=== PATIENT | female | born 1940 | race African-American/Black ===

== ENCOUNTER 2016-03-04 11:09 | Emergency (ER) | payer OTHER ==
[~2016-03-04] VITALS: Ht 149.9 cm; Wt 45.4 kg
--- NOTE | ~2016-03-04 | EKG ---
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
[~2016-03-04 11:09] MED LIST: NAUZENE PO; NOHOMEMEDICATIONS; OMEPRAZOLE; PERCOCET 5-3251 EACH PO; PHENERGAN 25 MG25 MG PO
[2016-03-04] MEDS ORDERED: VITAMIN D1000 UNI1 PO (11:16)
[2016-03-04] MEDS ORDERED: RISPERIDONE 1 MG1 MG PO (11:16)
[2016-03-04] MEDS ORDERED: CALCIUM 500 +1 EAC1 PO (11:16)
[2016-03-04 12:00] LABS: URINE BILIRUBIN NEGATIVE (Negative); URINE BLOOD NEGATIVE (Negative); URINE COLOR YELLOW; URINE GLUCOSE-RANDOM* NEGATIVE (Negative); URINE KETONES NEGATIVE (Negative); URINE LEUKOCYTES-REFLEX NEGATIVE (Negative); URINE PROTEIN (DIPSTICK) NEGATIVE (Negative); URINE UROBILINOGEN 0.2 E.U./dl (0.2-1.0)
[2016-03-04 12:01] LABS: ABSOLUTE NEUTROPHILS 5.3 thou/uL (1.4-8.2); EOSINOPHILS 2.9 % (0.0-3.0); HEMATOCRIT 43.5 % (37.0-47.0); HEMOGLOBIN 14.4 gm/dL (12.0-15.0); LYMPHOCYTES 28.5 % (24.0-44.0); MCH 30.8 pg (26.0-34.0); MCHC 33.2 % (28.0-37.0); MONOCYTES 4.9 % (1.0-8.0); PLATELET COUNT 301 thou/uL (150-400); POLYS 62.7 % (36.0-66.0); RBC 4.67 mil/uL (4.20-5.00); RDW 14.4 % (10.5-14.5); WBC 8.5 thou/uL (4.0-11.0)
[2016-03-04 12:11] LABS: MANUAL DIFF NO
[2016-03-04 12:28] LABS: ALBUMIN 3.5 g/dL (3.4-5.0); CALCIUM 8.8 mg/dL (8.5-10.1); CREATININE 0.1 mg/dL (0.6-1.3); POTASSIUM 5.6 mmol/L (3.5-5.1); TOTAL BILIRUBIN 0.9 mg/dL (<0.1-1.0); TOTAL PROTEIN 6.5 g/dL (6.4-8.2)
[2016-03-04 12:51] LABS: PLATELET ESTIMATE NORMAL
[2016-03-04] MEDS ORDERED: NORCO 5-325 TA1 EACH PO (14:03)
[2016-03-04 14:16] VITALS: BP 108/67
[2016-03-04] MEDS ORDERED: ZOFRAN ODT4 MG PO (14:16)
== END 2016-03-04 14:35 | disposition home or self-care (01) ==
LOC: ER 11:09
PROVIDERS: Emergency Medicine
DX: R41.0 Disorientation, unspecified (principal); M54.2 Cervicalgia; M25.519 Pain in unspecified shoulder; F17.210 Nicotine dependence, cigarettes, uncomplicated; Z90.710 Acquired absence of both cervix and uterus; Z88.6 Allergy status to analgesic agent; Z88.5 Allergy status to narcotic agent; Z88.1 Allergy status to other antibiotic agents

== ENCOUNTER 2016-07-11 11:49 | Inpatient (IN) | payer OTHER ==
[~2016-07-11] VITALS: Ht 157.5 cm; Wt 57.6 kg
--- NOTE | ~2016-07-11 | HC ---
[facility] [address] [place] [address] CONSULTATION Name: ALEX MARAVILLA Room #: 546-P [facility] IN M.R.#: [id number] Admission: 07/11/16 Attend Phys: Janes Miller MD Discharge: Date of : 41 Report #: [id number] THIS REPORT FOR: //name// CC: FAM unknown Janes Miller HISTORY OF PRESENT ILLNESS: The patient is a pleasant 76-year-old female who was admitted through the Emergency Room yesterday following a fall, where she landed on her right ankle. The patient complains of pain in the right ankle today. She reports that she does not remember exactly how she fell, but just notes that she fell and landed on her right ankle. She denies hitting her head or loss of consciousness with the fall. The patient does have a past medical history of polio with a right foot drop; she normally ambulates with a cane. ALLERGIES: ASPIRIN, CODEINE, CEPHALEXIN MONOHYDRATE and MORPHINE. PAST MEDICAL AND PAST SURGICAL HISTORY: Significant for dementia, child , hysterectomy, blood clot and polio. SOCIAL HISTORY: The patient reports that she lives at home, she is a current fqrd-addw-l-day smoker with a 53-year history. She reports that she does drink alcohol on special occasions. She typically ambulates with a cane or crutch. PHYSICAL EXAMINATION: VITAL SIGNS: Temperature 36.7 degrees Celsius, blood pressure 118/76 and pulse 88. GENERAL: The patient is awake, alert and in no acute distress. She is pleasantly confused today. EXTREMITIES: Right lower extremity is neurovascularly intact. Sugar-tong splint is in place on the right lower extremity. This was removed. No evidence of skin breakdown seen beneath the splint. Tenderness to palpation of the lateral malleolus, ATFL, CFL and distal fibula. No tenderness to palpation of the medial malleolus, mid foot. LABORATORY DATA: White blood cell count is 10.3, hemoglobin 14.6, creatinine is 0.4, BUN is 10, AST 13, ALT 11 and blood glucose is 188. IMAGING: Three views of the right ankle performed on 07/11/2016 show findings most suggestive of a nondisplaced, obliquely oriented fracture involving the distal fibula/lateral malleolus, with lateral soft tissue swelling/thickening. IMPRESSION: Right lateral malleolar fracture, nondisplaced. PLAN: We discussed the patient's diagnosis and treatment options today. She has a nondisplaced fracture of the lateral malleolus. This could be treated conservatively with immobilization. The patient has been wearing a sugar-tong splint on the right ankle. She has significant edema noted in the foot distal [address] [address] CONSULTATION Name: ALEX MARAVILLA Room #: 546-P [facility] IN M.R.#: [id number] Admission: 07/11/16 Attend Phys: Janes Miller MD Discharge: Date of : 42 Report #: [id number] to the splint, and I have removed the splint today and placed the patient in a CAM walker boot. We discussed that she could weightbear as tolerated while in this boot. She will return to our outpatient clinic for followup radiographs in 7-10 days' time. We discussed that she could follow up with either myself or Dr. Jose Rausch. By: 1040 1653 JOHANNA Hope /nt
[2016-07-11 11:49] VITALS: BP 137/85
[~2016-07-11 11:49] MED LIST changes: +CALCIUM 500 +1 EAC1 PO; +NORCO 5-325 TA1 EACH PO; +RISPERIDONE 1 MG1 MG PO; +VITAMIN D1000 UNI1 PO; +ZOFRAN ODT4 MG PO
[2016-07-11] MEDS ORDERED: HYDROCODONE-AP1 EAC6 PO (16:07)
[2016-07-11] MEDS ORDERED: ZOFRAN ODT4 M1 PO (16:07)
[2016-07-11 17:13] VITALS: BP 122/70
[2016-07-11 17:35] VITALS: BP 111/96
[2016-07-11 18:34] LABS: BASOPHILS 0.8 % (0.0-2.0); EOSINOPHILS 1.4 % (0.0-3.0); HEMATOCRIT 43.8 % (37.0-47.0); HEMOGLOBIN 14.6 gm/dL (12.0-15.0); LYMPHOCYTES 18.3 % (24.0-44.0); MCH 31.8 pg (26.0-34.0); MCHC 33.3 g/dL (28.0-37.0); MCV 95.7 fL (80.0-100.0); MONOCYTES 4.4 % (1.0-8.0); PLATELET COUNT 238 thou/uL (150-400); POLYS 75.1 % (36.0-66.0); RBC 4.58 mil/uL (4.20-5.00); RDW 14.5 % (10.5-14.5); WBC 9.3 thou/uL (4.0-11.0)
[2016-07-11 18:35] LABS: MANUAL DIFF NO
[2016-07-11 18:36] LABS: CALCIUM 9.2 mg/dL (8.5-10.1); CREATININE 0.4 mg/dL (0.6-1.0); POTASSIUM 4.5 mmol/L (3.5-5.1)
[2016-07-11 18:41] LABS: ALBUMIN 3.9 g/dL (3.4-5.0); TOTAL BILIRUBIN 0.7 mg/dL (<0.1-1.0); TOTAL PROTEIN 7.1 g/dL (6.4-8.2)
[2016-07-11 20:45] VITALS: BP 123/81
[2016-07-11 23:25] VITALS: BP 151/76
[2016-07-12 03:30] VITALS: BP 120/83
[2016-07-12 08:02] VITALS: BP 118/76
[2016-07-12 12:00] VITALS: BP 138/79
[2016-07-12 15:58] VITALS: BP 138/79
[2016-07-13 05:42] VITALS: BP 124/74
[2016-07-13 08:31] VITALS: BP 109/97
[2016-07-13 16:01] VITALS: BP 109/61
[2016-07-13 19:03] VITALS: BP 104/65
[2016-07-14 03:17] VITALS: BP 141/87
[2016-07-14 07:55] VITALS: BP 98/77
[2016-07-14] MEDS ORDERED: HYDROCODONE-AP1 EAC6 PO (08:51)
[2016-07-14] MEDS ORDERED: NICOTINE TRANSD14 M1 TRANSDERM (08:51)
[2016-07-14 15:39] VITALS: BP 147/84
[2016-07-14 20:16] VITALS: BP 128/81
[2016-07-15 04:17] VITALS: BP 121/69
[2016-07-15 08:00] VITALS: BP 99/66
== END 2016-07-15 17:45 | DRG 563 ==
LOC: ER 11:49 → 5S 16:16 → EROBS 16:16 → 5S 17:14
PROVIDERS: Nurse Practitioner Family
DX: S82.64XA Nondisplaced fracture of lateral malleolus of right fibula, initial encounter for closed fracture (principal); F03.90 Unspecified dementia, unspecified severity, without behavioral disturbance, psychotic disturbance, mood disturbance, and anxiety; G14 Postpolio syndrome; F17.210 Nicotine dependence, cigarettes, uncomplicated; W18.39XA Other fall on same level, initial encounter; M62.830 Muscle spasm of back; Z79.82 Long term (current) use of aspirin; Z90.710 Acquired absence of both cervix and uterus; Z88.6 Allergy status to analgesic agent; Z88.8 Allergy status to other drugs, medicaments and biological substances; Z86.718 Personal history of other venous thrombosis and embolism; Y93.89 Activity, other specified; Y92.098 Other place in other non-institutional residence as the place of occurrence of the external cause; Y99.8 Other external cause status
CPT/HCPCS: 10086

== ENCOUNTER 2018-03-07 13:16 | Emergency (ER) | payer OTHER ==
[~2018-03-07] VITALS: Ht 160 cm; Wt 49.9 kg
[~2018-03-07 13:16] MED LIST changes: +HYDROCODONE-AP1 EAC6 PO; +NICOTINE TRANSD14 M1 TRANSDERM; +ZOFRAN ODT4 M1 PO
[2018-03-07 14:42] LABS: BASOPHILS 0.5 % (0.0-2.0); HEMATOCRIT 43.7 % (37.0-47.0); HEMOGLOBIN 14.8 gm/dL (12.0-15.0); LYMPHOCYTES 13.3 % (24.0-44.0); MCHC 33.9 g/dL (28.0-37.0); MCV 94.5 fL (80.0-100.0); MONOCYTES 2.4 % (1.0-8.0); POLYS 82.8 % (36.0-66.0); RBC 4.62 mil/uL (4.20-5.00); RDW 14.2 % (10.5-14.5); WBC 10.9 thou/uL (4.0-11.0)
[2018-03-07 14:51] LABS: ANION GAP 11 mmol/L (7-16); BUN 12 mg/dL (7-18); CALCIUM 9.2 mg/dL (8.5-10.1); CHLORIDE 107 mmol/L (98-107); CO2 23 mmol/L (21-32); CREATININE 0.5 mg/dL (0.6-1.0); GLUCOSE 109 mg/dL (74-106); POTASSIUM 4.3 mmol/L (3.5-5.1); SODIUM 141 mmol/L (136-145)
[2018-03-07 15:00] LABS: ALBUMIN 3.5 g/dL (3.4-5.0); PLATELET COUNT 245 thou/uL (150-400); SGOT 18 U/L (15-37); SGPT 28 U/L (30-65); TOTAL BILIRUBIN 0.4 mg/dL (<0.1-1.0); TOTAL PROTEIN 7.3 g/dL (6.4-8.2); TROPONIN-I <0.06 ng/mL (<0.06)
[2018-03-07 15:12] LABS: URINE BILIRUBIN NEGATIVE (Negative); URINE BLOOD NEGATIVE (Negative); URINE CLARITY CLEAR; URINE COLOR YELLOW; URINE GLUCOSE-RANDOM* NEGATIVE (Negative); URINE KETONES NEGATIVE (Negative); URINE NITRITE-REFLEX NEGATIVE (Negative); URINE PROTEIN (DIPSTICK) NEGATIVE (Negative)
[2018-03-07 15:13] LABS: URINE LEUKOCYTES-REFLEX NEGATIVE (Negative); URINE UROBILINOGEN 0.2 E.U./dl (0.2-1.0)
[2018-03-07] MEDS ORDERED: ONDANSETRON HCL4 M2 PO (16:59)
[2018-03-07 18:30] VITALS: BP 103/60
--- NOTE | 2018-03-07 22:20 | EKG ---
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
== END 2018-03-07 18:31 | disposition home or self-care (01) ==
LOC: ER 13:16
PROVIDERS: Physician Assistant
DX: R11.2 Nausea with vomiting, unspecified (principal); F17.210 Nicotine dependence, cigarettes, uncomplicated; Z88.6 Allergy status to analgesic agent; Z88.5 Allergy status to narcotic agent; Z88.8 Allergy status to other drugs, medicaments and biological substances; Z90.710 Acquired absence of both cervix and uterus

== ENCOUNTER 2018-06-03 22:50 | Inpatient (IN) | payer OTHER ==
[~2018-06-03] VITALS: Ht 152.4 cm; Wt 51.7 kg
[~2018-06-03 22:50] MED LIST changes: +ONDANSETRON HCL4 M2 PO
[2018-06-03 22:51] VITALS: BP 122/59
[2018-06-03 23:13] LABS: HEMOGLOBIN 14.7 gm/dL (12.0-15.0); WBC 8.3 thou/uL (4.0-11.0)
[2018-06-03 23:14] LABS: ABSOLUTE NEUTROPHILS 4.8 thou/uL (1.4-8.2); BASOPHILS 0.8 % (0.0-2.0); EOSINOPHILS 2.6 % (0.0-3.0); HEMATOCRIT 43.4 % (37.0-47.0); LYMPHOCYTES 33.4 % (24.0-44.0); MCH 31.8 pg (26.0-34.0); MCHC 33.9 g/dL (28.0-37.0); MONOCYTES 5.3 % (1.0-8.0); PLATELET COUNT 282 thou/uL (150-400); POLYS 57.9 % (36.0-66.0); RBC 4.61 mil/uL (4.20-5.00); RDW 13.9 % (10.5-14.5)
[2018-06-03 23:19] LABS: ANION GAP 11 mmol/L (7-16); BUN 16 mg/dL (7-18); CALCIUM 8.8 mg/dL (8.5-10.1); CHLORIDE 108 mmol/L (98-107); CO2 25 mmol/L (21-32); CREATININE 0.7 mg/dL (0.6-1.0); GLUCOSE 106 mg/dL (74-106); POTASSIUM 3.6 mmol/L (3.5-5.1); SODIUM 144 mmol/L (136-145)
[2018-06-03 23:27] LABS: TROPONIN-I <0.06 ng/mL (<0.06)
[2018-06-04 01:26] VITALS: BP 94/51
[2018-06-04 01:30] VITALS: BP 102/59
[2018-06-04 02:17] VITALS: BP 104/68
[2018-06-04 05:22] VITALS: BP 93/57
--- NOTE | 2018-06-04 05:54 | NUR ---
PATIENT ARRIVED ON THE FLOOR ON 06/04/18AT 0210 HRS. PATIENT WAS ALERT AND ORIENTED TO SELF, PLACE AND TIME. PATIENT IS DEMENTED AND IT IS HER BASELINE PER FAMILY. PATIENT WAS ORIENTED TO THE ROOM AND CONSENTS WERE SIGNED. THE NIGHT PROGRESSED, PT WAS ABLE TO GET COMFORTABLE AND GET SOME SLEEP. PT IS CONFUSED TO SITUATION AND DOES NOT KNOW WHAT IS GOING ON. PT WAS REORIENTED BUT IS FORGETFUL. PT IS NOT PROGRESSING TOWARDS DC GOALS AT THIS TIME.
[2018-06-04 07:35] VITALS: BP 104/65; BP 139/86
--- NOTE | 2018-06-04 13:50 | NUR ---
Assumed pt care this am, pt is pleasant but could be forgetful at times. Pt had diagnostics done in nte a,, CT and US carotid and a portable EEG. Pt has no complaints of issues verbalized. Pt has not felt dizzy at this point. Pt wants to go down to the 3rd floor since according to her, her hgas been confined. POC being followed and will continue to monitor pt.
--- NOTE | 2018-06-04 15:07 | NUR ---
PT ADMITTED RELATED TO NEAR SYNCOPE. CM REVIEWED CHART AND SPOKE WITH CARE TEAM. CM MET WITH PT AT BEDSIDE THIS DAY. PT IS SLIGHTLY FORGETFUL. PT INDICATED SHE LIVES IN A HOUSE WITH HER SPOUSE WITH 4 STEPS TO ENTER AND NO STEPS INSIDE. 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 PT INDICATED SHE PLANS TO RETURN HOME ONCE MEDICALLY STABLE. CM CALLED PT'S HOLA ROSE HER DPOA AND SHE INDICATED THAT PT RESIDES IN HOUSE WITH SPOUSE WITH NO STEPS TO ENTER AND NO STEPS INSIDE. SHE INDICATED PT HAS TOWER CLEANER AND CAREGIVER SERVICES THROUGH HER MEDICAID 8-5 7 DAYS A WEEK AND RESPITE HRS AT NIGHT. SHE INDICATED THAT THEY ANTICPATE PT RETURNING HOME ONCE MEDICALLY STABLE. CM TO FOLLOW INDICATED WITH DC PLANNING.
[2018-06-04 15:20] VITALS: BP 96/71
--- NOTE | 2018-06-04 17:07 | EKG ---
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: BOAZ : 1940 Requested By: Efra Higgins Order Number: [id number] MD: Dio Guerrero Measurements Intervals [place] Rate: 76 P: 62 CO: 166 QRS: 20 QRSD: 84 T: 48 QT: 411 QTc: 463 Interpretive Statements Sinus rhythm Compared to ECG 03/07/2018 13:32:17 No significant changes Electronically Signed On 06-04-2018 17:07:38 CDT by Dio Guerrero [email or web address] ��������������������������������������������� <ELECTRONICALLY SIGNED> ���������������������������������������� By: Dio Guerrero MD, [facility] ��������������������������������������������� 06/04/18 1707 2312 11 Dio Guerrero MD, FACC /EPI
[2018-06-04 17:43] LABS: TSH 3.634 uIU/mL (0.358-3.740)
[2018-06-05 03:00] VITALS: BP 137/60
--- NOTE | 2018-06-05 05:30 | NUR ---
Pt. has been up most of the night with streaks of being agitated. She kept removing her tele monitor several times and pulled out her iv. Pt. is very confused and oriented to self only. She is also forgetful. Her spouse is on [address] and she was taken over there several times, but did not remember. Pt. would then get angry because she did not get to see her spouse. Pt. also refused her po meds. Spoke to Romy KEYS with new orders to leave iv out, stop tele and one time haldol im as pt. started to get agitated this am. But, pt. more calm sitting up in the chair and will hold off on that for now. Chair alarm is on.
[2018-06-05 07:50] VITALS: BP 152/86
[2018-06-05 09:58] LABS: CHOLESTEROL 146 mg/dL (<200); HDL CHOLESTEROL 54 mg/dL (>40); LDL CHOLESTEROL 67 mg/dL (<100); TC:HDL 2.7 Ratio (Not establshd); TRIGLYCERIDE 128 mg/dL (<150); VLDL 26 mg/dL (<40)
--- NOTE | 2018-06-05 14:24 | EEG ---
[facility] [place] [address] [place] [address] ELECTROENCEPHALOGRAM Name: ALEX MARAVILLA Room #: 454-P [facility] IN M.R.#: [id number] ������������������ Admission: 06/04/18 ������������������ Attend Phys: Ruperto Rodriguez MD Discharge: ������������������ Date of : 42 Report #: [id number] ����������������������������������������������������������������� [id number] THIS REPORT FOR: //name// CC: FAM unknown Ruperto Rodriguez DATE OF SERVICE: 06/04/2018 This patient is being evaluated for the possibility of seizure. The patient stares into the blank. She does have underlying dementia. EEG was done by placing the electrodes by standard 10-20 system of electrode placement. Both referential and sequential montages were used for recording. Background activity in this patient's EEG is about 11 Hz and 30 microvolts. Photic stimulation is unremarkable. The patient became drowsy and that is associated with bilateral slowing and vertex sharp waves. Throughout the record, no active epileptiform activity was noticed. IMPRESSION: This patient's EEG is unremarkable. Thank you very much for this referral. ���������������������������������������� <ELECTRONICALLY SIGNED> ���������������������������������������� By: Jw Gracia MD ��������������������������������������������� 06/05/18 1424 1619 1634 Jw Gracia MD /nt
--- NOTE | 2018-06-05 14:31 | HC ---
[facility] [address] [place] [address] CONSULTATION Name: ALEX MARAVILLA Room #: 454-P ADM IN M.R.#: [id number] Admission: 06/04/18 ������������������ Attend Phys: Ruperto Rodriguez MD Discharge: ������������������ Date of : 41 Report #: [id number] THIS REPORT FOR: //name// CC: FAM unknown Ruperto Rodriguez DATE OF SERVICE: 06/04/2018 HISTORY OF PRESENT ILLNESS: This is a 78-year-old female patient who was evaluated by me for an episode she had. It is a poorly defined episode. She had a similar episode in the past. The patient apparently became lightheaded and she knew she was going to have an episode of syncope. She became sluggish. It looks like her blood pressure was low when it happened, that is from the records. The patient cannot provide any history in that regard. REVIEW OF SYSTEMS: Indicate a prior history of polio. She had a prior history of hysterectomy and dementia. She does not have any clear history of seizures. She lives with family, but no family member is available. A 14-point review of system was carried out from the records as well as from the patient. This was relevant 14-point review of system. PAST MEDICAL HISTORY: Positive for dementia. FAMILY HISTORY: Negative for any early age stroke. History is not reliable. SOCIAL HISTORY: She smokes. PHYSICAL EXAMINATION: Indicates she is alert, but she does not know what month it is. She does not know what year it is. She did not know what hospital she is in. Speech looks intact. Cranial nerve examination 2-12 was attempted. She did not cooperate very well. Specifically, I could not look at the patient's fundus. I cannot tell about the visual field deficit. Neuromuscular examination indicates prior weakness secondary to polio, especially in the left leg. Her sensation looks intact. Tone is diminished and the reflexes do appear to be also asymmetrical. She did not understand the instruction for cerebellar sign. She is a moderately built individual. Her hearing and vision looks adequate. The blood pressure is 96/71, respirations 18, pulse is 69 and temperature is 98.3. LABORATORY DATA: White count is 8.3. Sodium is 144. I ordered a CT scan of the head and carotid Doppler in this patient as initial testing that does not appear to be showing any definite abnormality. IMPRESSION: It is not clear what the episode was. It is possible low blood pressure was the etiology. We will exclude the possibility of seizure by doing [facility] [address] [place] [address] CONSULTATION Name: ALEX MARAVILLA Room #: 454-P [facility] IN M.R.#: [id number] Admission: 06/04/18 ������������������ Attend Phys: Ruperto Rodriguez MD Discharge: ������������������ Date of : 42 Report #: [id number] an EEG because of the patient's history of dementia and dementia patient's predisposition to develop seizure. We will try to contact the family to see how aggressive they want to be in this patient. My feeling will be to be as less aggressive as possible because her dementia does appear to be pretty severe. I discussed all of it with the patient in detail. I am not sure how much she understood. She was instructed to live a healthy lifestyle and not to smoke or drink any alcohol. When we can reach the family, we will talk to them and reinforce the same thing to them. Thank you very much for this referral. Time spent 50 minutes, half of it in counseling the patient and coordinating her care. ��������������������������������������������� <ELECTRONICALLY SIGNED> ���������������������������������������� By: Jw Gracia MD ��������������������������������������������� 06/05/18 1431 1648 0136 Jw Gracia MD /nt
--- NOTE | 2018-06-05 15:43 | NUR ---
PHYSICIAN SPOKE WITH PT'S GDTR AND THEY ARE RECEPTIVE TO CONSULT FOR INPATIENT PSYC. DR. GAR IS ASSESSING. CM TO FOLLOW INDICATED WITH DC PLANNING.
--- NOTE | 2018-06-05 17:46 | NUR ---
PT A&O TO SELF,CONFUSED, VSS, BACK PAIN MANAGED WITH TYLENOL. PT HAS BEEN IMPULSIVE AND USING CALL LIGHT INAPPROPRIATELY. PT REFUSED MEDICATION TODAY AND MRI/MRA. PT DPOA AT BEDSIDE TO SPEAK WITH DOCTOR TODAY. PT HAS HAD ONE TO ONE SITTER TODAY. PLAN IS TO ADMIT PATIENT TO [facility]. SAFETY PRECAUTIONS IN PLACE, WILL CONTINUE TO MONITOR.
[2018-06-05 19:32] VITALS: BP 113/55
--- NOTE | 2018-06-06 01:36 | NUR ---
ASSUMED CARE AROUND 1900. AXOX1. VERY CONFUSED AND IMPULSIVE. HAD TO PAGE SECURUTY MULTIPLE TIME FOR BEING AGGRESSIVE. MOVED TO [facility] FOR BETTER OBSERVATION. DPOA AT BEDSIDE WHILE BEING MOVED TO NEW ROOM. REFUSED NIGHT MEDS. NO S/S ACUTE DISTRESS NOTED OR REPORTED AT THIS TIME. AWAITING AUTH FOR ADMISSION TO [facility]. WILL CONT TO MONITOR FOR ANY CHAGES IN CONDITION.
[2018-06-06 03:21] VITALS: BP 110/45
[2018-06-06 09:14] VITALS: BP 103/55
--- NOTE | 2018-06-06 09:24 | NUR ---
assumed pt care report received from nail specialist nurse eleanor. pt is aox2 to self and place. denies pain, n/v. on ra saturation above 95%. vss. pt to go to MRI this am. this nurse spoke with daughter Baljeet who says that pt has had MRI done in the past and that she is not aware that pt has aneurysm clip. she wants the pt to have the MRI done as long as the head scan showed no clip ( which according to CT department, picture of head showed no clip). MRI screening paper was updated by this nurse. the daughter's comment has been written up. see chart. pt made aware of the testing. transporter escorted pt to MRI at 0925. will continue to monitor
--- NOTE | 2018-06-06 12:30 | NUR ---
DR GAR FROM [facility] MENTIONED THAT DPOA PAPERS ARE NEEDED FROM PT DAUGHTER. SPOKE ON T HE PHONE WITH DAUGHTER BUT DAUGHTER HAS NOT VISITED YET. SR BERNSTEIN NOTIFIED.
--- NOTE | 2018-06-06 12:32 | NUR ---
PT REMAINS AOX2 , PROPER BEHAVIOR, NO AGITATION OR DISTURBING BEHAVIOR.
--- NOTE | 2018-06-06 12:56 | NUR ---
CARE TEAM INDICATED THAT THEY ARE AGREEABLE WITH PT DISHCARGING TO [facility] THIS DAY BUT [facility] IS REQUIRING PT'S DPOA PAPERWORK. CM CHECKED SCANNED IMAGES AND DPOA PAPERWORK ISN'T ON FILE. PT'S SPOUSE AND GDTR ARE LISTED IN OUR SYSTEM BUT THERE AREN'T ANY DOCUMENTS IN THE CHART OR COMPUTER. CM CALLED PT'S GDTR AND SHE INDICATED THAT SHE DOESN'T HAVE A PRINTED COPY ON HAND BUT THAT SHE HAS THE DOCUMENT ON FILE AT [facility]. CM CONTACTED MEDICAL RECORDS AT [facility] AND REQUESTED A COPY OF THE DPOA PAPERWORK. CM AWAITING RESPONSE.
[2018-06-06 14:58] VITALS: BP 100/48
--- NOTE | 2018-06-06 15:19 | NUR ---
CM AQUIRED DPOA PAPERWPRK FROM [employer] AND PLACED IT ON THE CHART. CARE TEAM INDICATED THAT PT IS MEDICALLY STABLE TO DISHCARGE TO [facility] THIS DAY. CM NOTIFIED PT'S GDTR AND SHE IS AWARE AND AGREEABLE. NO OTHER CM INTERVENTION INDICATED AT THIS TIME. CASE CLOSED.
[2018-06-06] MEDS ORDERED: VITAMIN B-12500 MCG PO (15:20)
--- NOTE | 2018-06-06 16:07 | NUR ---
PT TRANSFERED TO [facility]. DISCHARGE PAPER GIVEN TO TRANSPORTER. REPORT GIVEN TO NURSE CLEMENT. PT LEFT UNIT AT 1540 ACCOMPANIED BY TRANSPORTER ON A WHEELCHAIR.
== END 2018-06-06 15:50 | DRG 72 ==
LOC: ER 22:50 → EROBS 06-04 00:59 → 4W 06-04 00:59 → ENTRNSPT 06-06 15:43 → EDTRNSPTSTS 06-06 15:47 → 4W 06-06 15:50
PROVIDERS: Emergency Medicine; Psychiatry & Neurology Neuromuscular Medicine; ADMIT Internal Medicine
DX: G93.41 Metabolic encephalopathy (principal); R55 Syncope and collapse; F03.90 Unspecified dementia, unspecified severity, without behavioral disturbance, psychotic disturbance, mood disturbance, and anxiety; F17.210 Nicotine dependence, cigarettes, uncomplicated; A80.9 Acute poliomyelitis, unspecified; M62.84 Sarcopenia; E53.8 Deficiency of other specified B group vitamins; Z90.710 Acquired absence of both cervix and uterus; Z88.6 Allergy status to analgesic agent; Z88.8 Allergy status to other drugs, medicaments and biological substances; Z79.899 Other long term (current) drug therapy; Z86.12 Personal history of poliomyelitis
CPT/HCPCS: 10045; 10047

== ENCOUNTER 2018-06-06 15:07 | Inpatient (IN) | payer OTHER ==
[~2018-06-06] VITALS: Ht 149.9 cm; Wt 50.3 kg
[2018-06-06] MEDS ORDERED: VITAMIN B-12500 MCG PO (15:20)
--- NOTE | 2018-06-06 17:59 | NUR ---
PATIENT IS A 78 YEAR OLD FEMALE WHO ARRIVED TO THE [facility] FROM [facility] VIA TRANSPORTER. ACCORDING TO REPORT, PATIENT HAS HISTORY OF ADVANCE DEMENTION UPON [facility]. PATIENT ALSO HAS HISTORY OF SYNCOPE, HX OF POLIO A CHILD, AND BLOOD CLOT, GETS LOVENOX FOR IT. REPORT ALSO STATES THAT PATIENT HAD SYNCOPE EPOSIDE AT HOME, LOST BLADDER CONTROL, WOULD NOT TALK OR REMEMBER ANYTHING. PATIENT'S BLOOD PRESSURE RUNS LOW IN THE 90/60s PER REPORT, AND PER PATIENT, AND DPOA. PATIENT WAS AGITATED UPON ADMISSION TO [facility] BUT HAS BEEN CALM SINCE TODAY, PER REPORT. PATIENT HAS DPOA (MILTON ARMENDARIZ) ASSESSMENT INFORMATION GOTTEN FROM BOTH PATIENT AND DPOA. DPOA GAVE CONSENT TO ADMINISTER HALDOL, AND OTHER MEDICATIONS, SECOND NURSE WITHNESSED. PATIENT IS ALERT, FORGETFUL, AND CONFUSED AT TIMES. LCTA, RESPIRATION EVEN/UNLABORED, BS+X4, PATIENT AMBULATES WITH ASSIST OF ROLLER WALKER, GAIT IS UNSTEADY. PATIENT DENIES HAVING PHYSICAL PAIN, PATIENT DENIES DEPRESSION/ANXIETY. SHE DENIES SUICIDAL AND HOMOCIDAL IDEATION. SHE IS NOW FOCUSED ON HOW LONG SHE IS GOING TO STAY IN THE HOSPITAL, PATIENT INFORMED THAT THE PSYCHIATRIST WILL EVALUATE HER IN THE MORNING AND LET HER KNOW. PATIENT HAD SUPPER, APPETITIE IS VERY GOOD. DPOA (BRADEN ARMENDARIZ) STATES SHE WILL COME IN AND SIGN ADMISSION PAPERWORK. NO SIGN OF ACUTE DISTRESS NOTED AT THIS TIME, WILL MONITOR FOR SAFETY.
[2018-06-06 20:55] VITALS: BP 133/90
--- NOTE | 2018-06-07 00:04 | NUR ---
Patient alert and oriented to person and place. Patient believes that it is [place] and is worried about her . Patient keeps asking if her is in the hospital also. Patient denies SI/HI/AH/VH. No aggressive behaviors reported or observed. Patient ambulates about her room and the unit with FWW. DPOA will be here in the AM to sign admission paperwork. Patient very upset, anxious, frustrated at the beginning of the shift wondering why she is here and why she can't go home. After speaking with patient, showing concern for her safety, patient stated that she would stay until the morning when she is able to speak with the doctor. Patient took her medications whole without difficulty. Patient preferred to stay in her room and keep to herself. Patient was able to go to sleep without difficulty and is resting quietly in bed.
--- NOTE | 2018-06-07 04:55 | NUR ---
Patient has been in her room throughout the night. Patient had been laying awake at times during rounds. Overall appears to have slept well throughout the night.
[2018-06-07 07:20] VITALS: BP 146/75
--- NOTE | 2018-06-07 10:37 | NUR ---
ASSUMED PATIENT CARE AT 0700. PATIENT UP IN HER ROOM AT THAT TIME. ATE BREAKFAST, PARTICIPATED WELL FOR A.M. GROUP, PER R.T. NURSE REQUESTED [facility]., TO ORDER A ED WALKER, PER TREATMENT TEAM DISCUSSION. FLAT AFFECT, CALM MOOD, NO BEHAVIORS. CONTINUE TO MONITOR.
[2018-06-07 19:31] VITALS: BP 130/87
--- NOTE | 2018-06-07 21:13 | NUR ---
Pt refused hs medications. Pt was checking doors for exit upon arrival to shift.
--- NOTE | 2018-06-07 21:57 | NUR ---
Dr Rock updated on patient regarding verbal aggressive, I don't need a damn thing, going to doors trying to exit (x3) , refusing medications, sitting in hallway in chair. At this time pt is in room, sitting on bed. PRN for agitation x 1 ordered if aggressive behavior continues.
--- NOTE | 2018-06-07 22:10 | NUR ---
Pt has walker for ambulation, unsteady gait related to polio. Pt refused hs snack and hs medications. Pt was walking up the halls checking doors to leave to go home. Pt given explaination that doors are locked and redirected to her room. Pt sitting in chair in hallway watching doors. Pt sharp toned with responses with all verbal interacitons.
--- NOTE | 2018-06-07 22:38 | H ---
[facility] [address] [place] [place] [address] HISTORY AND PHYSICAL Name: ALEX MARAVILLA Room #: 527B-B ADM IN M.R.#: [id number] Admission: 06/06/18 ������������������ Attend Phys: Justo Richards DO Discharge: ������������������ Date of : 42 Report #: [id number] THIS REPORT FOR: //name// CC: Justo Richards [facility] unknown DATE OF SERVICE: 06/06/2018 ATTENDING PHYSICIAN: Justo Richards DO BARK SCALER: Wesley Cam MD REASON FOR ADMISSION: Agitation, irritability, concern for major neurocognitive disorder, uncooperative with medication. HISTORY OF PRESENT ILLNESS: This is a 78-year-old black female who is familiar to me from caring for her from [facility], and past admissions there throughout 2017. The patient was admitted to the medical floor at [facility] on 06/04 or so. The patient had a considerable workup for seizure, altered mental status from information obtained from the medical records. She had a negative chest x-ray. CT of head: No evidence of acute intracranial hemorrhage. MRI showed moderate generalized parenchymal volume loss and mild chronic small vessel ischemic changes. No evidence of acute recent infarction. In addition, the patient was seen by Neurology. The reasons for admission were specifically the syncopal episode occurred at home just prior to arrival. Granddaughter present at bedside. The patient stopped talking, would not respond. She was staring off. The patient resides at home with her spouse, which I do not believe is true. Ambulates with a single point cane, sometimes no assistive device. The patient requires frequent verbal cues and moderate to full assistance with ADLs, uncertain number of falls in the last 12 months. The patient is an every day smoker, smokes about a half pack daily. Consumes 2-3 beers regularly. ALLERGIES: ASPIRIN, CODEINE, CEPHALEXIN, MORPHINE. PAST MEDICAL HISTORY: She has had 3 live births, medical history of blood clot, polio as a child and most recently diagnosed dementia. PAST SURGICAL HISTORY: Hysterectomy. SIGNIFICANT FAMILY HISTORY: Her father and brother with Alzheimer's related dementia. COMPREHENSIVE REVIEW OF SYSTEMS: During her medical admission: HEENT: No symptoms reported. RESPIRATORY: No symptoms reported. [facility] [address] [place] [address] HISTORY AND PHYSICAL Name: ALEX MARAVILLA Room #: 527B-B [facility] IN .R.#: [id number] Admission: 06/06/18 ������������������ Attend Phys: Justo Richards DO Discharge: ������������������ Date of : 42 Report #: [id number] CARDIOVASCULAR: No symptoms reported. GASTROINTESTINAL: No abdominal symptoms reported. GENITOURINARY: No symptoms reported. MUSCULOSKELETAL: She has some gait difficulty as described above. SKIN: No symptoms. ENDOCRINE: No symptoms. HEMATOLOGIC: No symptoms. PSYCHIATRIC: Denied SI, HI, auditory or visual or tactile hallucinations. All other review of systems negative on 10 points. DIAGNOSES: Include syncopal event of unknown origin, numerous past psychiatric hospitalizations at [facility]. LABORATORY DATA: From 06/03, white count 8.3, H and H 14.7 and 43.4, platelet count 282. Chemistries: Sodium 144 on 06/03, potassium 3.6, chloride 108, bicarbonate 25, BUN 16, creatinine 0.7, estimated GFR 98, glucose 106. Lactic acid was done on 03/07 that was 0.5. The rest were back from February such as AST 18, ALT 28, alkaline phosphatase 97. BNP 7. Lipids were within normal limits done on 06/05. Vitamin B12 low at 260, we will start her on IM replacement at this time. TSH was 3.634. MENTAL STATUS EXAMINATION: This is a well-developed black female, appearing stated age. Attention limited. Concentration limited. Speech is normal rate and volume and tone. Thought process is linear and goal directed. Thought content noted poverty of thought. No psychomotor agitation. No psychomotor retardation. No auditory, visual or tactile hallucination. No suicidal intent or plan. Mood and affect were congruent and euthymic, though not broad. Insight limited. Judgment limited. Fund of knowledge below average. FORMULATION: A 78-year-old black female admitted for major neurocognitive disorder picture recently given diagnosis of an advanced reversible dementia by Dr. Gracia, a neurologist here. PLAN: Evaluate, stabilize, obtain collateral. Go ahead and start her on Depakote ER 750 mg at bedtime. Haldol was started yesterday was 2.5 mg p.o. b.i.d. so she gets a steady state. Continue vitamin B12. Actually since she is on oral replacement, I will not order IM. Continue Caltrate 600 t.i.d. See how she does in next several days. She may or may not require placement in a memory care. Family is interested in taking care of her at home. Time spent on interview, evaluation, review of records, coordination of care is at least 60 minutes. STRENGTHS: She is insured, family support. [facility] [address] [place] [address] HISTORY AND PHYSICAL Name: ALEX MARAVILLA Room #: 527B-B ADM IN M.R.#: [id number] Admission: 06/06/18 ������������������ Attend Phys: Justo Richards DO Discharge: ������������������ Date of : 42 Report #: [id number] WEAKNESSES: Advancing age, neurodegenerative disorder. ��������������������������������������������� <ELECTRONICALLY SIGNED> ���������������������������������������� By: Justo Richards DO ��������������������������������������������� 06/07/18 2238 1410 1513 Justo Richards DO /nt
--- NOTE | 2018-06-07 23:53 | NUR ---
Pt remains awake sitting on edge of bed, she has removed her gown and replaced sweatshirt, she has taken off all of her blankets and placed them on floor, she has michelle folding and refolding her paper chux. Pt is quiet in her room, bed alarm remains on.
--- NOTE | 2018-06-08 00:17 | NUR ---
Pt continues to be restless in her room, moving from side to side of bed, taking of sheets and blankets, talking to self, yelling to self, yelling at staff as they pass room, cursing at staff, calling them the n word, yelling get out of my m f house. Pt not following verbal redirection to have assistance with transfers. Pt threatened to call police since staff in her house. PRN IM haldol given x 1 for agitation.
--- NOTE | 2018-06-08 00:59 | NUR ---
0040 Pt sitting in the middle of the bed with cover over legs. Pt was yelling to her grandsons that there better be no girls walking in her house or they will be going to retirement. Pt also yelled out who is in the kitchen.
--- NOTE | 2018-06-08 01:26 | NUR ---
Pt is kneeling on the ground and using her shoe to kill spiders, she asked for her cigarette case management social worker so she could use it on the spiders. Pt asked to return to bed and she complied.
--- NOTE | 2018-06-08 01:55 | NUR ---
Pt is now laying bed with covers on, resting.
--- NOTE | 2018-06-08 03:34 | NUR ---
Pt has only slept one hour this evening. She has been sitting in her room, repositioning herself in bed, she has used the restroom and rearranged her sheets. She periodically talks to herself.
--- NOTE | 2018-06-08 06:29 | NUR ---
Pt returned to sleeping around 0400 and was not awakened for morning supplement.
[2018-06-08 10:17] VITALS: BP 103/60
--- NOTE | 2018-06-08 13:01 | NUR ---
CALM. COOPERATIVE. CONVERSENT. TO COMMON AREA FOR BREAKFAST BY WC. F[place]ON NOW. WILL CONTINUE TO FOLLOW.
[2018-06-08 19:40] VITALS: BP 108/70
--- NOTE | 2018-06-08 21:59 | NUR ---
Pt interacting with female peer and dolls. Pt compliant with snack and medications. Pt sitting in w/c propeling herself in hallway. Pt stated that female peer was her Blaine and that they were going to sleep together. Pt redirected re female peer and that pt is at [facility]. Pt accepted information. Pt has blunted affect, no discussion of hallucinations.
--- NOTE | 2018-06-08 22:41 | NUR ---
Pt repositioning self on to bed or w/c folding and refolding her clothes and sheets. She is not talking to herself.
--- NOTE | 2018-06-09 03:15 | NUR ---
Pt awakened off and on until 0100.
--- NOTE | 2018-06-09 03:19 | NUR ---
Pt awake and ambulating self in w/c in hallways.
[2018-06-09 07:45] VITALS: BP 100/63
[2018-06-09 10:39] VITALS: BP 100/63
--- NOTE | 2018-06-09 11:04 | NUR ---
ASSUMED CARE AT 0715 TODAY. PT. DRESSED AND SITTING AT THE TABLE FOR BREAKFAST. SHE QUESTIONED THE MEDICATIONS MANY TIMES. THEY WERE REVIEWED WITH HER. INITIALLY SHE STATED SHE WANT TO WAIT FOR THE DR., BUT EVENTUALLY SHE TOOK THEM WITH SOME ENCOURAGEMENT. SHE WAS VERY SUSPICIOUS WITH PEERS AND STAFF. SHE HAD FAMILY VISIT DURING FAMILY VISITING HOURS. ATTENDED AM GROUP. PLEASANT WITH STAFF AND PEERS.
--- NOTE | 2018-06-09 19:37 | NUR ---
Pt resting in bed upon arrival to shift.
[2018-06-09 20:00] VITALS: BP 121/70
--- NOTE | 2018-06-09 21:03 | NUR ---
Pt was compliant with haldol but refused her depakote and calcium stating there were to many and they are to large. Pt had hs snack. Pt stated she is at home and who are all the N word people out there yelling and why are there so many people in her house. Pt in bed in her clothes she was asked to put on gown so we can do her laundry.
--- NOTE | 2018-06-10 00:23 | NUR ---
ASSUMED CARE @ 22:45. IN BED, EYES CLOSED, RESPIRATIONS EVEN AND UNLABORED. WILL CONTINUE TO MONITOR.
--- NOTE | 2018-06-10 06:14 | NUR ---
SLEPT 11 HOURS NOC.
[2018-06-10 19:32] VITALS: BP 95/54
--- NOTE | 2018-06-10 21:53 | NUR ---
ASSUMED CARE OF THE PT AT 1915PM. THE PT WAS IN HER ROOM, REFUSED TO TAKE HER DEPAKOTE SPRINKLES, BUT SHE DID TAKE HER HALDOL WITHOUT ANY DIFFICULTY. HEART RATE REGULAR. LUNGS CLEAR BILATERALLY, DENIES ANXIETY, AND DEPRESSION. DENIES SI AND HI CURRENTLY. REMAINS ON 12 MINUTE CHECKS FOR HER SAFETY.
--- NOTE | 2018-06-10 23:21 | NUR ---
THE PT HAS BEEN AGITATED MOST OF THE EVENING SHIFT, TRYING TO GET OUT THE DOOR, THIS MANAGER PRODUCT DESIGN WENT TO GET HER AWAY FROM THE DOOR AND SHE THEN LOWERED HERSELF TO THE GROUND. SHE GOT HERSELF BACK UP INTO THE CHAIR, WITH THE ASSISTANCE OF 2 HOLDING THE WHEELCHAIR. THIS MANAGER PRODUCT DESIGN HAD CALLED THE N.P. WHO WAS RETAIL ADVERTISING ACCOUNT EXECUTIVE AND RECEIVED AN ORDER FOR ZYPREXA 5 MG IM Q 4 HOURS FOR AGITATION. SHE KEPT STATING THAT SHE WANTED TO CALL THE POLICE, THAT SHE WANTED TO LEAVE. SHE CONTINUED TO TRY TO GO OUT THE LOCKED DOORS. THIS MANAGER PRODUCT DESIGN CALLED THE SECURITY AND THEY CAME UP, THE PT RECEIVED A SHOT IN HER LEFT ARM. REMAINS ON 12 MINUTE CHECKS FOR HER SAFETY.
--- NOTE | 2018-06-11 02:56 | NUR ---
THE PT HAS NOT SLEPT AT ALL THIS SHIFT. CURRENTLY SHE IS IN THE DAYROOM SITTING IN A CHAIR. NO DISTRESS NOTED. DENIES PAIN AT THIS TIME. THE PT APPEARS CALMER SINCE SHE GOT THE MEDICATION AT 2330. REMAINS ON 12 MINUTE CHECKS FOR HER SAFETY.
--- NOTE | 2018-06-11 06:26 | NUR ---
THE PT DID NOT SLEE[ AT ALL LAST NIGHT.
[2018-06-11 07:55] VITALS: BP 117/73
[2018-06-11 11:47] VITALS: BP 117/73
--- NOTE | 2018-06-11 12:04 | NUR ---
ASSUMED CARE AT 0715 TODAY. PT. UP FOR BREAKFAST AND GROUPS. COOPERATIVE WITH TAKING HER MEDICATIONS. VERY DISORGANIZED IN HER SPEECH. P.T. STATED PT. CAN HAVE HER SHOES THAT ARE DESIGNED FOR HER DUE TO ONE LEG SHORTER THAN THE OTHER. WILL SPEAK WITH DR. GAR ABOUT THIS AND MAKE SURE THERE IS NOT PROBLEM WITH THIS. Yajaira. WALKED WITH PT. IN THE LUDWIG.
[2018-06-11 20:48] VITALS: BP 149/83
--- NOTE | 2018-06-11 22:38 | NUR ---
THE PT WENT INTO OTHER PT'S ROOMS, SAYING, "LEAVE ME ALONE, WHERE IS MY ?" IT WAS VERY HARD TO REDIRECT THE PT. SHE KEPT TRYING TO LEAVE THE UNIT, BY PUSHING AND PULLING THE DOORS. REDIRECTED THE PT BACK TO HER ROOM. MEDICATED THE PT WITH ZYPREXA 5MG IM WITH THE ASSISTANCE OF 2 STAFF. REMAINS ON 12 MINUTE CHECKS FOR HER SAFETY.
--- NOTE | 2018-06-12 06:42 | NUR ---
THE PT SLEPT 5 HOURS LAST NIGHT.
[2018-06-12 07:55] VITALS: BP 118/68
--- NOTE | 2018-06-12 09:24 | NUR ---
ASSUMED PATIENT CARE AT 0715 A.M. PATIENT LYING IN BED, RIGHT SIDE AT THAT TIME. AT FIRST, REFUSED TO GET UP FOR BREAKFAST. HOWEVER, WAS ASSISTED UP TO BREAKFAST AT 0845. ATE ABOUT 30% OF MEAL. COMPLIANT WITH MEDICATIONS AFTER NURSE ENCOURAGED HER TO DRINK O.J. (WITH DEPAKOTE SPRINKLES) AND TOOK HER P.O. MEDS WHOLE WITH THE O.J. BLUNT AFFECT, DROWSY MOOD, NO BEHAVIORS TO DATE. CONTINUE TO MONITOR.
--- NOTE | 2018-06-12 15:06 | NUR ---
JASEN met with pt DPOA (grand-daughter Chari) concerning discharge. Pt will be discharging on June 13, 2018. Pt will be transported by her daughter to her home, and will have HH.
[2018-06-12 19:48] VITALS: BP 136/70
--- NOTE | 2018-06-12 20:53 | NUR ---
Pt sitting in w/c in room looking at a magazine. Pt talked with her daughter on the phone. Pt compliant with medication and hs snack. Pt did start cursing and sharp toned, when the portable phone was taken from her, stating she had a friend she needed to call. The subject was changed and pt explained that phone was from the [employer] station and not her personal phone and pt returned to being pleasant tone and eating her snack. HR remains irreg.
--- NOTE | 2018-06-13 02:44 | NUR ---
Pt awakened x 1 in the night, when an admission occurred. Pt propeled self in her w/c around the unit and then returned to bed.
[2018-06-13 07:46] VITALS: BP 117/71
--- NOTE | 2018-06-13 10:50 | NUR ---
ASSUMED PATIENT CARE AT 0715. PATIENT ASSISTED UP FOR BREAKFAST. ATE PARTIAL BREAKFAST--30-40%. BLUNT AFFECT, CALM MOOD, NO PSCHY BEHAVIORS TO DATE THIS SHIFT. ATTENDED GROUP THERAPY, NON-PARTICIPATORY. CONTINUE TO MONITOR.
[2018-06-13] MEDS ORDERED: DEPAKOTE SPRIN125 MG PO ×2 (10:59)
[2018-06-13] MEDS ORDERED: CALCIUM 600 +1 EAC1 PO (11:00)
[2018-06-13] MEDS ORDERED: HALOPERIDOL 5 MG5 MG PO (11:00)
[2018-06-13] MEDS ORDERED: MAG-AL PLUS SUS30 ML PO (11:01)
[2018-06-13] MEDS ORDERED: MILK OF MA2400 MG/11 PO (11:01)
[2018-06-13 11:27] VITALS: BP 117/71
[2018-06-13 12:14] VITALS: BP 117/71
--- NOTE | 2018-06-13 12:15 | NUR ---
Patient Name: ALEX MARAVILLA Admission Date: 06/06/18 DISCHARGE PLAN: Pt will be discharge home with HH. Care Assessment: Pt was assessed by Dr. Richards, and diagnosed with Major Neurocognitive Disorder. Pt will need HH, and 04/09 care. Level II Assessment: None Transportation: Pt will be transported by her granddaughter Chari who is the DPOA. Special Instructions/Notes: Pt had an opportunity to complete the SLUMS assessment which she scored an 08/07. DISCHARGE TO FACILITY: Facility: Phone: Fax: Address: Contact Name: Phone: PCP: DAISY Psychiatrist: [facility] [address] [facility] [id number]
--- NOTE | 2018-06-13 12:40 | NUR ---
THIS NURSE ASSISTED PATIENT WITH PATIENT SURVEY. HER ANSWERS WERE 95% POSITIVE FOR TREATMENT PLAN. SHE BECAME VERY COMMUNICATIVE, EXPRESSING WHY SHE ENDED UP HERE, AND VERBALIZED HOW SHE WOULD TRY HARD TO NOT HAVE SAME ISSUES LATER. AGREED WITH NURSE THAT SHE MUST BE MED COMPLIANT IN ORDER TO MAITAIN CURRENT CURRENT BEHAVIOR.
--- NOTE | 2018-06-13 17:32 | NUR ---
PATIENT DISCHARGED AT 1430 FROM OUR FACILITY. [facility] TRANSPORTED PATIENT HOME. SHE REVIEWED ALL DOCUMENTATION AND SIGNED APPROPRIATE PAPERWORK. PROPERTY REVIEWED AND ACCOUNTED FOR AND POSSESSIONS TAKEN WITH FAMILY. PATIENT HAD ALL MORNING MEDICATIONS AND SCHEDULED FOR DAY SHIFT.
--- NOTE | 2018-06-14 23:23 | D ---
[facility] [place] [address] [place] [address] DISCHARGE SUMMARY Name: ALEX MARAVILLA Room #: 527B-B [facility] IN M.R.#: [id number] Admission: 06/06/18 ������������������ Attend Phys: Justo Richards DO Discharge: 06/13/18 ������������������ Date of : 42 Report #: [id number] THIS REPORT FOR: //name// CC: Justo Richards [facility] unknown DATE OF SERVICE: 06/13/2018 ATTENDING: Justo Richards D.O. MANAGER DIESEL: Wesley Cam M.D. DISCHARGE DIAGNOSES: Major neurocognitive disorder, most likely due to Alzheimer's disease with behavioral disturbance, some improvement. ADDITIONAL DIAGNOSES: Personality disorder, unspecified, B12 deficiency, on replacement, history of blood clot on anticoagulant, postpolio syndrome. DISCHARGE DIET: Regular. ACTIVITY LEVEL: As tolerated; however, the patient requires 24/7 care. This will be provided at her cousin's house. REASON FOR ADMISSION: The patient is a 78-year-old black female admitted from the [facility]. The patient had agitation, irritability, concern for major neurocognitive disorder. HOSPITAL COURSE: The patient was admitted to Geriatric Psych Unit. Several changes were made to her medication including titrating her Depakote, which was 125 mg b.i.d. to Sprinkles then blood level of 40 being obtained on a dose of 250 in the morning and 75 at night, later increased to 500 in the morning, 375 at night. Haldol was started 2.5 mg twice per day, this increased to 5 mg twice per day, predominantly to help with sundowning behaviors as well as the patient being delusional she would also often have delusions of situation and location such as believing her niece was present and she clearly had never visited the unit that day. 04/09 care was recommended. The patient previously had set up in the community for this, unsure of DPOA, her daughter may want to continue. DISCHARGE MEDICATIONS: Depakote Sprinkles 375 mg at bedtime, 500 mg in the morning, 30-day prescription was given, Haldol 5 mg twice per day for psychosis looking to titrate off in 6-8 weeks, calcium carbonate, vitamin D3 one tab p.o. t.i.d., magnesium hydroxide 30 mL p.r.n. p.o. for indigestion, magnesium hydroxide 10 mL p.o. at bedtime p.r.n. constipation. Daughter was warned about the potential for constipation with bowel motility with haloperidol, probably at home. Recommended her going on Prevacid twice a day or MiraLax daily. Also, continue cyanocobalamin 500 mcg daily, which should be rechecked in [address] [address] DISCHARGE SUMMARY Name: ALEX MARAVILLA Room #: 527B-B [facility] IN M.R.#: [id number] Admission: 06/06/18 ������������������ Attend Phys: Justo Richards DO Discharge: 06/13/18 ������������������ Date of : 42 Report #: [id number] Also, script was given for Depakote level to be done on Sunday or Saturday 06/17 or 06/18, fax to me at [phone]. Psychiatric followup scheduled for 07/25/2018 at [facility]. Laboratories this admission are as follows, from a Psychiatric Unit Depakote level 40, otherwise was done on the medical unit, which is covered with Dr. Cam's dictation. MUSCULOSKELETAL: The patient is selectively nonambulatory. Minimal ambulation. I believe this is secondary to personality features. The patient is a well-developed, well-nourished black female, appearing to be stated age. Attention limited. Concentration limited. Speech slow, well articulated. Thought process is limited. Thought content, focused on discharge. Some psychomotor retardation, psychomotor agitation. Denied visual type hallucinations. Denied suicidal or homicidal plan. Denied intent or plans. Memory impaired from the test remission with the slowness. She had a score that was low at 3-6 range, out of 30. Prognosis is guarded given age and advancing dementia. The patient is not a position for all measures such as reasonable ambulation. ��������������������������������������������� <ELECTRONICALLY SIGNED> ���������������������������������������� By: Justo Richards DO ��������������������������������������������� 06/14/18 2323 2134 0240 Justo Richards DO /nt
== END 2018-06-13 14:48 | disposition home health service (06) | DRG 57 ==
LOC: SBH 15:07
PROVIDERS: ADMIT Psychiatry & Neurology Psychiatry
DX: G30.9 Alzheimer's disease, unspecified (principal); F02.81 Dementia in other diseases classified elsewhere, unspecified severity, with behavioral disturbance; F01.50 Vascular dementia, unspecified severity, without behavioral disturbance, psychotic disturbance, mood disturbance, and anxiety; E53.8 Deficiency of other specified B group vitamins; A80.9 Acute poliomyelitis, unspecified; Z88.6 Allergy status to analgesic agent; Z88.8 Allergy status to other drugs, medicaments and biological substances; Z81.8 Family history of other mental and behavioral disorders
CPT/HCPCS: 10880

== ENCOUNTER 2019-01-10 17:29 | Emergency (ER) | payer OTHER ==
[~2019-01-10] VITALS: Ht 149.9 cm; Wt 47.6 kg
[~2019-01-10 17:29] MED LIST changes: +CALCIUM 600 +1 EAC1 PO; +DEPAKOTE SPRIN125 MG PO; +HALOPERIDOL 5 MG5 MG PO; +MAG-AL PLUS SUS30 ML PO; +MILK OF MA2400 MG/11 PO; +VITAMIN B-12500 MCG PO
[2019-01-10 18:15] LABS: URINE BLOOD NEGATIVE (Negative); URINE CLARITY SL CLOUDY; URINE COLOR YELLOW; URINE GLUCOSE-RANDOM* NEGATIVE (Negative); URINE KETONES TRACE (Negative); URINE NITRITE-REFLEX NEGATIVE (Negative); URINE PROTEIN (DIPSTICK) NEGATIVE (Negative); URINE SPECIFIC GRAVITY >= 1.030 (1.005-1.035); URINE UROBILINOGEN 0.2 E.U./dl (0.2-1.0)
[2019-01-10 18:17] LABS: URINE LEUKOCYTES-REFLEX 2+ (Negative)
[2019-01-10 18:21] LABS: URINE BILIRUBIN NEGATIVE (Negative)
[2019-01-10 18:22] LABS: ICTOTEST (BILI CONFIRMATORY) Negative (Negative)
[2019-01-10 18:26] LABS: AMP/METHAMP Negative (Negative); BARBITURATES Negative (Negative); BENZODIAZEPINES Negative (Negative); COCAINE Negative (Negative); METHADONE Negative (Negative); OPIATES Negative (Negative); PCP Negative (Negative)
[2019-01-10 18:28] LABS: SQUAMOUS >10 Many /LPF (0-3)
[2019-01-10 18:30] LABS: CASTS None Seen /LPF (None Seen); CRYSTALS None Seen /LPF (None Seen); URINE WBC-REFLEX 6-15 Few /HPF (0-5)
[2019-01-10 18:34] LABS: URINE RBC None Seen /HPF (0-2)
[2019-01-10 19:44] LABS: ABSOLUTE NEUTROPHILS 7.9 thou/uL (1.4-8.2); BASOPHILS 0.5 % (0.0-2.0); EOSINOPHILS 0.6 % (0.0-3.0); HEMATOCRIT 41.4 % (37.0-47.0); HEMOGLOBIN 13.7 gm/dL (12.0-15.0); LYMPHOCYTES 13.9 % (24.0-44.0); MCH 31.3 pg (26.0-34.0); MCHC 33.2 g/dL (28.0-37.0); MCV 94.2 fL (80.0-100.0); MONOCYTES 4.6 % (1.0-8.0); PLATELET COUNT 260 thou/uL (150-400); POLYS 80.4 % (36.0-66.0); RBC 4.39 mil/uL (4.20-5.00); RDW 14.4 % (10.5-14.5); WBC 9.8 thou/uL (4.0-11.0)
[2019-01-10 19:55] LABS: ANION GAP 8 mmol/L (7-16); BUN 13 mg/dL (7-18); CALCIUM 9.8 mg/dL (8.5-10.1); CHLORIDE 108 mmol/L (98-107); CO2 25 mmol/L (21-32); CREATININE 0.6 mg/dL (0.6-1.0); GLUCOSE 100 mg/dL (74-106); POTASSIUM 4.1 mmol/L (3.5-5.1); SODIUM 141 mmol/L (136-145)
[2019-01-10 20:03] LABS: ALBUMIN 3.6 g/dL (3.4-5.0); DIRECT BILIRUBIN 0.1 mg/dL (<0.1-0.3); SGOT 11 U/L (15-37); SGPT 11 U/L (30-65); TOTAL BILIRUBIN 0.4 mg/dL (<0.1-1.0); TOTAL PROTEIN 6.9 g/dL (6.4-8.2); TROPONIN-I <0.06 ng/mL (<0.06)
[2019-01-10 22:40] VITALS: BP 122/82
--- NOTE | 2019-01-11 10:01 | EKG ---
[facility] [address] [place] [address] ELECTROCARDIOGRAM REPORT Name: ALEX MARAVILLA Room #: THOMAS Read#: [id number] Admission: 01/10/19 Attend Phys: Discharge: 01/10/19 Date of : 42 Report #: [id number] THIS REPORT FOR: //name// [facility] ED Test Date: 2019-01-10 Test Time: 17:39:10 Pat Name: ALEX MARAVILLA Department: Room: Gender: [employer] Tender: [facility] 1940 Requested By: Chetna Camacho Order Number: [id number] MD: Dio Guerrero Measurements Intervals [place] Rate: 81 P: 84 [place]: 185 QRS: 27 QRSD: 227 T: 39 QT: 420 QTc: 488 Interpretive Statements Sinus rhythm Multiple ventricular premature complexes Compared to ECG 06/03/2018 23:12:18 Ventricular premature complex(es) now present Electronically Signed On 01-11-2019 10:01:34 SOCCER REFEREE by Dio Guerrero [email or web address] <ELECTRONICALLY SIGNED> By: Dio Guerrero MD, [facility] 01/11/19 1001 1739 1739 Dio Guerrero MD, FACC /EPI
== END 2019-01-10 22:40 | disposition home or self-care (01) ==
LOC: ER 17:29
PROVIDERS: Emergency Medicine
DX: R40.4 Transient alteration of awareness (principal); R42 Dizziness and giddiness; F17.210 Nicotine dependence, cigarettes, uncomplicated; Z88.6 Allergy status to analgesic agent; Z88.1 Allergy status to other antibiotic agents; Z88.5 Allergy status to narcotic agent; Z79.899 Other long term (current) drug therapy; Z90.710 Acquired absence of both cervix and uterus

== ENCOUNTER 2020-06-18 02:16 | Emergency (ER) | payer OTHER ==
[~2020-06-18] VITALS: Ht 149.9 cm; Wt 47.6 kg
[2020-06-18 03:35] LABS: BASOPHILS 0.7 % (0.0-2.0); HEMATOCRIT 39.8 % (37.0-47.0); HEMOGLOBIN 13.5 gm/dL (12.0-15.0); LYMPHOCYTES 22.4 % (24.0-44.0); MCH 31.5 pg (26.0-34.0); MCHC 33.8 g/dL (28.0-37.0); MCV 93.2 fL (80.0-100.0); MONOCYTES 4.4 % (1.0-8.0); PLATELET COUNT 295 thou/uL (150-400); POLYS 71.5 % (36.0-66.0); RBC 4.27 mil/uL (4.20-5.00); RDW 14.7 % (10.5-14.5); WBC 8.4 thou/uL (4.0-11.0)
[2020-06-18 03:39] LABS: ANION GAP 16 mmol/L (7-16); BUN 15 mg/dL (7-18); CALCIUM 8.9 mg/dL (8.5-10.1); CHLORIDE 108 mmol/L (98-107); CO2 22 mmol/L (21-32); CREATININE 0.5 mg/dL (0.6-1.0); GLUCOSE 93 mg/dL (74-106); POTASSIUM 3.5 mmol/L (3.5-5.1); SODIUM 146 mmol/L (136-145)
[2020-06-18 03:49] LABS: ALBUMIN 3.5 g/dL (3.4-5.0); SGOT 15 U/L (15-37); SGPT 19 U/L (30-65); TOTAL BILIRUBIN 0.5 mg/dL (0.2-1.0); TOTAL PROTEIN 6.8 g/dL (6.4-8.2); TROPONIN-I <0.06 ng/mL (<0.06)
[2020-06-18 03:53] LABS: URINE BLOOD NEGATIVE (Negative); URINE CLARITY CLEAR; URINE COLOR YELLOW; URINE GLUCOSE-RANDOM* NEGATIVE (Negative); URINE KETONES 2+ (Negative); URINE LEUKOCYTES-REFLEX NEGATIVE (Negative); URINE NITRITE-REFLEX NEGATIVE (Negative); URINE PROTEIN (DIPSTICK) NEGATIVE (Negative); URINE SPECIFIC GRAVITY >= 1.030 (1.005-1.035); URINE UROBILINOGEN 0.2 E.U./dl (0.2-1.0)
[2020-06-18 03:59] LABS: ICTOTEST (BILI CONFIRMATORY) Negative (Negative); URINE BILIRUBIN NEGATIVE (Negative)
[2020-06-18 05:18] VITALS: BP 110/69
--- NOTE | 2020-06-18 08:46 | EKG ---
[facility] [place] [address] ELECTROCARDIOGRAM REPORT Name: ALEX MARAVILLA Room #: THOMAS Read#: [id number] Admission: 06/18/20 Attend Phys: Discharge: 06/18/20 Date of : 42 Report #: [id number] [facility] ED Test Date: 2020-06-18 Test Time: 02:50:36 Pat Name: ALEX MARAVILLA Department: Room: Gender: F Community Health Advocate: ORIN ACEVES : 1940 Requested By: Raleigh Aly Order Number: [id number] MD: Dio Guerrero Measurements Intervals [place] Rate: 79 P: 71 [place]: 161 QRS: 13 QRSD: 82 T: 48 QT: 402 QTc: 461 Interpretive Statements Sinus rhythm Borderline low voltage, extremity leads Compared to ECG 01/10/2019 17:39:10 Ventricular premature complex(es) no longer present Electronically Signed On 06-18-2020 8:46:20 CDT by Dio Guerrero [email or web address] <ELECTRONICALLY SIGNED> By: Dio Guerrero MD, [facility] 06/18/20 0846 0250 0250 Dio Guerrero MD, FACC /EPI
== END 2020-06-18 05:19 ==
LOC: ER 02:16
PROVIDERS: Emergency Medicine
DX: F03.90 Unspecified dementia, unspecified severity, without behavioral disturbance, psychotic disturbance, mood disturbance, and anxiety (principal); Z20.822 Contact with and (suspected) exposure to COVID-19; R45.1 Restlessness and agitation; F17.210 Nicotine dependence, cigarettes, uncomplicated; Z88.6 Allergy status to analgesic agent; Z88.5 Allergy status to narcotic agent; Z88.0 Allergy status to penicillin; Z88.1 Allergy status to other antibiotic agents; Z79.899 Other long term (current) drug therapy

== ENCOUNTER 2020-06-18 05:10 | Inpatient (IN) | payer OTHER ==
[~2020-06-18] VITALS: Ht 157.5 cm; Wt 43.5 kg
[2020-06-18 06:26] VITALS: BP 126/66
--- NOTE | 2020-06-18 06:36 | NUR ---
80 YEAR OLD FEMALE ARRIVES TO FLOOR AT 0610 FROM ER. PER ER STAFF PT WAS BROUGHT IN BY [facility] HE LAST PM AFTER FOUND IN APARTMENT COMPLEX GOING DOOR TO DOOR KNOCKING ON NEIGHBORS DOORS-WAS AGITATED AND DIFFICULT FOR FAMILY TO HANDLE SO WAS BROUGHT TO ER FOR EVAL. UPON ARRIVAL TO FLOOR IS CALM,COOPERATIVE WITH REQUESTS FROM STAFF-STATES SHE FEELS TIRED AND WANTS TO GO TO SLEEP-ORIENTED TO [facility] BUT TH[facility]GHT SHE WAS AT [facility]. VS OBTAINED -CONSENTS FOR TREATMENT OBTAINED FROM [facility] -SHE REPORTS PT HAS BEEN OFF OF MEDICATIONS SINCE APPROX 3 MONTHS AFTER DC FROM [facility] 06/30. LIVES AT [facility] WITH AND SON.
[2020-06-18 12:32] VITALS: BP 126/66
--- NOTE | 2020-06-18 14:35 | NUR ---
1435 RESUMMED CARE FROM OVERNIGHT SHIFT THIS AM, PATIENT IN ROOM RESTING QUIET. PATIENT ALERT ORIENTED TO SELF AND PLACE PATIENT VERY CONFUSED. PATIENT THOUGHT ANOTHER PATIENT WAS HER AND WE TOLD PATIENT SHE CANNOT TOUCH ANOTHER PATIENT. SHE HAD TO BE REDIRECTED SEVERAL TIMES FOR TOUCHING ANOTHER PATIENT. PATIENT DENIES SI/HI/AH/VH AT PRESENT PATIENTS ABDOMEN SOFT BOWEL SOUNDS PRESENT. PATIENTS LUNGS CLEAR PATIENT WHEELS HERSELF AROUND UNIT IN WHEELCHAIR. PATIENT DOES PARTICIPATE IN GROUPS WILL CONTINUE TO MONITOR PATIENT FOR SAFETY AND BEHAVIORS.
--- NOTE | 2020-06-18 16:02 | NUR ---
JASEN and Dr. Yousif participated in a phone call with the Pt's [facility]/DPOA, Karissa [phone]. Karissa confirmed she was the Pt's DPOA, however did not have a copy of the DPOA. JASEN did find a copy of the DPOA in old records. JASEN put a copy in the chart. Karissa is concerned about the Pt's mood and issues with self care. Karissa is working with [facility] for placement of the Pt. Karissa requested updates be sent to facilitate placment to [facility]. Karissa had no other questions or concerns at this time. JASEN will continue to follow.
--- NOTE | 2020-06-18 17:21 | H ---
[facility] [address] [place] [address] HISTORY AND PHYSICAL Name: ALEX MARAVILLA Room #: 520A-A ADM IN M.R.#: [id number] Admission: 06/18/20 Attend Phys: Jean Paul Richards DO Discharge: Date of : 42 Report #: [id number] THIS REPORT FOR: cc: FAM - No family physician/PCP FAM - No family physician/PCP Jean Paul Richards DO ~ DOC #: [id number] JEAN PAUL Richards DO DATE OF SERVICE: 06/18/2020 INPATIENT PSYCHIATRIC EVALUATION ATTENDING PSYCHIATRIST: Jean Paul Richards DO PROFESSOR OF COUNSELING: Dr. Jean. SOURCES OF INFORMATION: Telephone conversation with daughter, Chari, who is a respiratory therapist here at [facility]; chart review as the patient was previously hospitalized in 06/2018 on the [facility] Unit; and interview with the patient. CHIEF COMPLAINT: Unspecified. HISTORY OF PRESENT ILLNESS: This is a 80-year-old black female known to me from caring for her in the geriatric psychiatry hospitalization context 2 years ago here at [facility]. She was brought in by her granddaughter, Chari, who is respiratory therapist there. The patient was agitated at night, was getting out of the house, walking around the neighbor's houses, knocking on doors at midnight. The patient has a history of dementia and again was previously admitted in 06/2018. The patient denies problems. States she does not remember acting agitated or knocking neighbor's doors. The patient lives with her as well as one of her sons, Chari's uncle. Initially, Chari got her back in the house and thought they had her calm down, but she ramped up again, was agitated, wanted to leave, difficult for them to redirect. The patient was cooperative in the ED, but had to be coaxed to come in. PAST MEDICAL HISTORY: Includes blood clot in 1998, polio as a child. SURGICAL PROCEDURAL HISTORY: Hysterectomy in 1996, childbirth x 3. Also, her spouse tested positive for COVID, was hospitalized in 03/2020. The patient was reported to have stopped taking all medications, seeking all medical care including psychiatric about 6 months after her discharge in 2018, so that would put her at 12/2018, 01/2019 since she was compliant. Of note, she had been discharged on Depakote sprinkles 375 in the morning and 500 in the evening, Haldol 5 mg p.o. b.i.d., calcium carbonate. [address] [address] HISTORY AND PHYSICAL Name: ALEX MARAVILLA Room #: [facility]-A ADM IN M.R.#: [id number] Admission: 06/18/20 Attend Phys: Jean Paul Richards DO Discharge: Date of : 42 Report #: [id number] ALLERGIES: ASPIRIN, CODEINE, CEPHALEXIN, MORPHINE, PENICILLINS. SOCIAL HISTORY: She smokes cigarettes of unclear quantity, no recreational drug use. No alcohol use. REVIEW OF SYSTEMS: From the ER; CONSTITUTIONAL: No fever or chills. EYES: No vision loss or discharge. HEENT: No sore throat, hearing loss, runny nose. RESPIRATORY: No cough or shortness of breath. CARDIOVASCULAR: No chest pain. GASTROINTESTINAL: No abdominal pain, nausea, vomiting or diarrhea. GENITOURINARY: No frequency or dysuria. MUSCULOSKELETAL: No back pain or extremity pain. SKIN: No rash or lesions. NEUROLOGIC: No focal weakness. PSYCHIATRIC: She reported in the ER, no emotional problems. ENDOCRINE: No unexpected weight changes. HEMATOLOGIC AND LYMPHATIC: No swollen glands or unusual bruising. PHYSICAL EXAMINATION: VITAL SIGNS: Weight is 47.63 kilos, BMI 20. Today, temperature 36.8, pulse 70, respirations 12, BP 126/66, O2 sat 100%. Physical exam was grossly normal. IMAGING STUDIES: EKG done in the ER showed a sinus rhythm with a rate of 79. No ischemic changes. LABORATORY DATA: From the ER; Hematology: H and H 13.5 and 39.8, white count 8.4, platelet count 295. There was a segment neutrophils percentage elevated at 71.5, lymphocytes low at 22.4, anisocytosis 1+, platelet estimate with normal red cell morphology was normal. Chemistry: Sodium 146, potassium 3.5, chloride 108, bicarbonate 22, anion gap 16, BUN 15, creatinine 0.5, estimated GFR 144, glucose 93, calcium 8.9, total bilirubin 0.5, AST 15, ALT 19, alkaline phosphatase 88. Troponin less than 0.06, total protein 6.8, albumin 3.5. Hemoglobin A1c has been ordered. TSH has not been ordered as I mentioned, but I will. Also, on HBIPS lipids are desired, so I will have them as well. Urinalysis abnormalities, 2+ ketones, 6-15 white blood cells, squamous epithelial cells, 10-30 bacteria. Culture was not triggered. COVID-19 Santos test was negative. H and P from 06/06/2018 showed family history of Alzheimer's in her father and brother with Alzheimer dementia. [facility] [address] [place] [address] HISTORY AND PHYSICAL Name: ALEX MARAVILLA Room #: 520A-A ADM IN Gladys#: [id number] Admission: 06/18/20 Attend Phys: Jean Paul Richards DO Discharge: Date of : 42 Report #: [id number] PHYSICAL EXAMINATION: In bed propped up. MENTAL STATUS EXAM: This is a well-developed thin black female who is unkempt appearing at least stated age. Attention fair, concentration limited. Speech normal rate, volume, and tone. The patient was oriented to self, not to time or place. She denied suicidal or homicidal ideations. Denied auditory, visual or tactile hallucinations was present. Denied hopelessness, helplessness. Memory not formally tested known to be impaired. Insight is impaired, judgment is impaired. Fund of knowledge diminished. FORMULATION: A 80-year-old black female admitted in the context of psychosis and behavioral disturbance due to dementia. The patient has at least a 2-year history of this. 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 Medical comorbidities include borderline hypernatremia, history of blood clots, history of polio as a child. PLAN: The patient is admitted to geriatric psychiatry voluntary by DPOA. The patient is incapacitated to make healthcare or general financial decisions. DPOA is enacted. The patient had been started on Depakote sprinkles 375 mg p.o. b.i.d. for mood stability and impulsivity, cannot rule out the need for antipsychotic later in admission. Time spent on this case is greater than 60 minutes, greater than 50% of time was reviewed records, coordination of care. The daughter who is working to get the patient and her placed at [facility] will assist her with this. She is a full code for now. strengths: has dpoa, has insurance weakness: advanced age and dementia DO ANGEL Vences/TORRI/ROBIN [facility] [address] [place] [address] HISTORY AND PHYSICAL Name: ALEX MARAVILLA Room #: 520A-A ADM IN M.R.#: [id number] Admission: 06/18/20 Attend Phys: Jean Paul Richards DO Discharge: Date of : 42 Report #: [id number] <ELECTRONICALLY SIGNED> By: Jean Paul Richards DO 06/18/20 1721 1027 [id number] Jean Paul Richards DO /nt
[2020-06-18 19:43] VITALS: BP 96/68
--- NOTE | 2020-06-18 23:50 | NUR ---
upon initial assessment this PM WAS PLEASANTLY CONFUSED- STATES SEVERAL TIMES DURING CONVERSATION THAT SHE WAS IN HER HOME AND WHEN TOLD SHE WAS IN THE HOSPITAL WILL ACCEPT THIS FOR A BRIEF TIME BEFORE AGAIN INSISTING THAT SHE WAS AT THE HOSPITAL BUT IS ONLY HERE TO VISIT HER AND NEEDS TO GET OUT BECAUSE DAUGHTER IS WAITING OUTSIDE EXIT DOORS TO PICK HER UP. REFUSED HS DEPAKOTE STATING VEHEMENTLY "I DON'T TAKE ANY MEDICINE AND NEVER WILL"ATTEMPTED TO PUT DEPAKOTE SPRINKLES IN ICE CREAM PER [facility] BUT AFTER 1 SMALL BITE STATES"I THINK THERE IS SOMETHING IN HERE" AND REFUSED TO EAT ANYMORE-ALSO HAS BEEN REFUSING TO DRINK WATER OFFERED BY STAFF "I DON'T KNOW WHAT IS IN IT" AND HAS BEEN DRINKING WATER OUT OF SMALL PLASTIC WATER BOTTLE BROUGHT UP FROM ER ON ADMIT TO UNIT. AT APPROX 2129 BEGAN BANGING ON EXIT DOORS OF UNIT-INTRUSIVE WITH PEERS AND REPEATADLY APPROACHED MALE PEER IN DR ATTEMPTING TO GIVE HIM WATER ANDGRABBING HIS ARMS AND LEGS-BECAME COMBATIVE WITH STAFF WHEN ATTEMPTED TO MOVE WC AWAY FROM PT. "STAY AWAY FROM ME YOU STUPID BITCH I KNOW MY WE HAVE BEEN FOR 54 YEARS"DR ALEGRE CONTACTED AND [id number] GIVEN IM IN LEFT DELTOID AT 2144-CONTINUED TO ATEMPT TO GET OUT DOORS AND TOUCH MALE PEER FOR ANOTHER 2 HOURS REQUIRINGCONSTANT OBSERVATION AND REDIRECTION BEFORE GOING INTO ROOM AND GETTING INTO BED AT 2344.
[2020-06-19 00:06] LABS: GLYCOHEMOGLOBIN (HGB A1C) 5.5 % (4.8-5.6)
--- NOTE | 2020-06-19 04:14 | NUR ---
UP X1 TURNING NIGHT TO USE RESTROOM AND DID SIT IN HALLWAY BRIEFLY BEFORE RETURNING TO BED. COOPERATIVE AND PLEASANT WITH STAFF-TRANSFERS SELF TO/FROM TOILET WITHOUT DIFFICULTY.
[2020-06-19 05:13] LABS: CHOLESTEROL 140 mg/dL (<200); HDL CHOLESTEROL 54 mg/dL (>40); LDL CHOLESTEROL 76 mg/dL (<100); SERUM ASSESSMENT Clear; TC:HDL 2.6 Ratio (Not establshd); TRIGLYCERIDE 52 mg/dL (<150); VLDL 10 mg/dL (<40)
[2020-06-19 08:32] LABS: ALBUMIN 3.1 g/dL (3.4-5.0); CALCIUM 8.4 mg/dL (8.5-10.1); CREATININE 0.4 mg/dL (0.6-1.0); TOTAL BILIRUBIN 0.3 mg/dL (0.2-1.0); TOTAL PROTEIN 5.4 g/dL (6.4-8.2)
[2020-06-19 09:07] VITALS: BP 120/66
[2020-06-19 09:18] VITALS: BP 120/66
--- NOTE | 2020-06-19 16:36 | NUR ---
SW met with Pt in the big room. Pt seemed to be in a good mood with a big smile on her face. Pt was confused about where she was. SW reoriented Pt that she was at the hospital. Pt asked about Karissa several time. SW informed that Karissa was in the hospital at work. Later Pt became confused and thought another Pt was her . SW and nursing was able to convince the Pt that her was not here. Pt requested to speak with Karissa. At the time nurse Cornelio was on the phone with Karissa but when finished transfered to call to the cordless phone. Pt was able to speak with Karissa and calm down. JASEN will continue to follow.
[2020-06-19 20:48] VITALS: BP 135/70
--- NOTE | 2020-06-19 23:00 | NUR ---
Assumed care on 06/19/20 @ 1915, in her w/c propelling self througout the mileu and entering peers rooms, looking for her , etc. Denied anxiety, depression and SI, Reports HI and used her hands and fingers to show me something about her eyes. Reports BM today. At first refused her p.o. meds and then after discussion involving medication and effects as well as her history of polio, took her depakote sprinkles in applesauce.
[2020-06-19 23:25] VITALS: BP 135/70
[2020-06-20 09:11] VITALS: BP 134/84
--- NOTE | 2020-06-20 10:04 | NUR ---
Alert and orientated to person and place. Calm, cooperative and compliant. Ate breakfast independently. Meds given crushed in applesauce. Breath sounds clear. Slightly irregular HR auscultated. Color pink with brisk capillary refill and palpable peripheral pulses. Feet cool to touch. Brief dry. Hypoactive bowel sounds over soft, rounded abdomen. Sitting in gerichair with peers without s/o distress.
[2020-06-20 18:54] VITALS: BP 117/54
--- NOTE | 2020-06-20 23:11 | NUR ---
REFUSED HSMEDICATIONS.ANGRY FACIALEXPRESSION AND RESISITVE WITH REQUESTS,REDIRECTION FROM NURSING STAFF.ENCOURAGING BEHAVIOR OF MALE PEER ON UNIT WHOM SHE HAS BEEN MISIDENTIFYING HER . LOUD AND ARGUMENTIVE WITH CAMP BOSS AND RN WHEN ATTEMPTED TO REORIENT-CALLING ACROSS DAYROOM "GET YOU GUN SUMMER-THIS IS OUR HOUSE"TAKEN TO ROOM AND REQUIRED 1;1 WITH NURSING STAFF-ORIENTED TO NAME ONLY.
--- NOTE | 2020-06-21 03:53 | NUR ---
HAS BEEN SITTING UP IN ROOM IN DOORWAY WATCHING STAFF AND HALLWAYS AND MUMBLING TO SELF-REFUSES TO GET IN BED INSISTING THAT HER DAUGHTER IS COMING TO GET HER -LATER STATES HER SUMMER IS OUTSIDE THE DOOR-. AT 309 GOT UP WITHOUT ASSIT AND WAS PUSHING STRAIGHT BACK CHAIR DOWN HALLWAY ENTERING OTHERS ROOMS YELLING "SUMMER" "SUMMER" WHEN STAFF ATTEMPTED TO REDIRECT STRIKES OUT AT [facility] STATING "DON'T TOUCH ME" GAIT IS UNSTEADY-REFUSES TO SIT IN CHAIR OR ALLOW STAFF TO ASSIT OR PROVIDE ROLLER WALKER-ENTERED FEMALE PT ROOM AND WAS STANDING OVER HER YELLING AND GRABBING PTS ARM-WHEN STAFF ATTEMPTED TO LEAD HER AWAY FROM BED STRUCK OUT WITH CLOSED FIST YELLING OBSCENITIES. SECURITY CONTACTED AND GEODON 10MG GIVEN IM IN RIGHT DELTOID-PLACED IN GERICHAIR IN DAYROOM WITH STAFF PROVIDING CONSTANT OBSERVATION D/T CONTINUED AGITATION
[2020-06-21 06:45] LABS: ALBUMIN 3.5 g/dL (3.4-5.0); CALCIUM 8.9 mg/dL (8.5-10.1); CREATININE 0.4 mg/dL (0.6-1.0); POTASSIUM 3.3 mmol/L (3.5-5.1); TOTAL BILIRUBIN 0.7 mg/dL (0.2-1.0); TOTAL PROTEIN 6.8 g/dL (6.4-8.2)
[2020-06-21 09:59] VITALS: BP 124/68
[2020-06-21 18:28] VITALS: BP 124/68
--- NOTE | 2020-06-21 18:35 | NUR ---
JASEN contacted Kamala concerning authorization for skilled. Kamala stated she is still waiting on authorization and will contact sadiq cotton again today about the matter.
[2020-06-21 19:46] VITALS: BP 125/69
[2020-06-21 20:20] VITALS: BP 125/69
--- NOTE | 2020-06-21 20:22 | NUR ---
Assumed pt care at 0700. pt was oriented to self. Assessments completed, vss. pt was mostly unco-operative with care. Pt was aggressive but redirectable. Denies si/hi. denies pain. ambulates with a w/c. pt constantly was calling another pt her . Meds administered as ordered. Dextrose 500ml was administered to pt. TOOks meds whole, no difficulty noted. continent of bowel and bladder. pt makes need known to staffs. Will continue to monitor pt.
--- NOTE | 2020-06-22 01:48 | NUR ---
PATIENT REFUSED TO SLEEP IN BED EARLIER. SHE SLEPT IN EBONY CHAIR OUT IN DINING ROOM. SHE ASKED TO USE THE BATHROOM BUT BECAME COMBATIVE WHEN SITTING HER ON THE BSC IN HER ROOM. SHE WAS SWINGING AND TRYING TO HIT STAFF. SHE WANTED TO DO IT ON HER OWN BUT WAS UNSTABLE AND NEEDED ASSITANCE. PATIENT WAS INCONTINENT. BRIEF CHANGED AND PATIENT CLEANED. PATIENT TAKEN BACK OUT TO DINING ROOM IN EBONY CHAIR AND MADE COMFORTABLE. CHAIR ALARM ON AND WORKING. PT RESTED FOR 30 MINUTES AND THEN AWOKE AGITATED AND CUSSING AND TRYING TO PULL OUT HER IV SALINE LOCK IN RIGHT UPPER ARM. SHE WAS SWINGING AND TRYING TO GET OUT OF CHAIR. SHE KEPT YELLING THAT SHE DIDN'T WANT TO GO FISHING. OLANZAPINE 2.5 MG IM GIVEN IN RIGHT DELTOID. SHE KEPT TRYING TO HIT AND PULL AT IV. PT WAS TAKEN TO THE BATHROOM AGAIN AND SHE VOIDED MODERATE AMOUNT. PATIENT WAS FALLING ASLEEP ON THE BSC BUT BECAME COMBATIVE WHEN TRYING TO GET HER TRANSFERRED FROM BSC TO BED. ONCE IN BED PATIENT CALMED AFTER A FEW MINUTES AND FELL ASLEEP. CONTINUING TO MONITOR. BED IN LOW POSITION AND BED ALARM IS ON.
[2020-06-22 13:08] VITALS: BP 136/70
[2020-06-22 15:58] LABS: CALCIUM 8.8 mg/dL (8.5-10.1); CREATININE 0.5 mg/dL (0.6-1.0); POTASSIUM 4.3 mmol/L (3.5-5.1)
--- NOTE | 2020-06-22 18:24 | NUR ---
0700 ASSUMED CARE OF PATIENT, PATIENT IN BED AT THAT TIME. PATIENT ALARM SOUNDS OFF STAFF TO ROOM, PATIENT ARGUING AND NOT FOLLOWING DIRECTIONS. PATIENT CHANGED AND TO EBONY CHAIR VIA 2 ASSIST. PATIENT TO DAYROOM SITTING AT TABLE. 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 ARCHITECTURE TECHNICIAN LATER APPROCHES PATIENT WITH MEDICATION, PATIENT TAKES MEDS WHOLE WITHOUT DIFFICULTY. PATIENT QUIET AND NOTED OFF AND ON SLEEPING IN CHAIR. PATIENT LS CLEAR, BS ACTIVE. A + O X1. DENIES NEEDS AT THIS TIME
[2020-06-22 18:57] VITALS: BP 94/51
--- NOTE | 2020-06-22 20:42 | NUR ---
PT IN EBONY CHAIR IN DAY ROOM. PT TALKING TO SELF, SHARP TONED DEMANDING TO LEAVE MAKE APPOINTMENTS, FIND HER . PT RESTLESS IN FREQUENT LUNGING FORWARD AND REACHING FOR ITEMS. PT ASSISTED TO RESTROOM, PT FREQUENTLY VERBALLY REDIRECTED AND DISTRACTED. PT COMPLIANT WITH MEDS AND HS SNACK. CHAIR AND BED ALARM IN USE. PRN PROVIDED FOR AGITATION RESTLESS BEHAVIORS AND STATEMENTS. PT DOES GRAB PINCH SLAP DURING CARES PROVIDED.
[2020-06-23 07:20] VITALS: BP 129/68
[2020-06-23 10:55] VITALS: BP 132/86
--- NOTE | 2020-06-23 13:28 | NUR ---
1315 RESUMMED CARE FROM OVERNIGHT SHIFT THIS AM, PATIENT THIS AM IN DAY ROOM QUIET. PATIENT ALERT ORIENTED TO SELF ONLY PATIENT IS CONFUSED AND STILL THINKS ANOTHER PATIENT IS HER . PATIENT DENIES SI/HI/AH/VH AT PRESENT PATIENTS ABDOMEN SOFT BOWEL SOUNDS PRESENT. PATIENTS LUNGS CLEAR PT CAME TO ASSESS PATIENT. I ASKED PATIENTS GRANDDAUGHTER IF SHE HAD A BRACE AT HOME AND SHE STATED NO. PATIENTS GRANDDAUGHTER CAME FOR FAMILY MEETING SHE WORKS HERE IN RESPIATORY THERAPY. PATIENT SOMETIMES GETS FIESTY WITH YOU AND I HAD TO TALK PATIENT INTO TAKING HER MEDICATION. PATIENTS ABDOMEN SOFT BOWEL SOUNDS PRESENT; PATIENTS LUNGS CLEAR. WILL CONTINUE TO MONITOR PATIENT FOR SAFETY AND BEHAVIORS.
--- NOTE | 2020-06-23 15:59 | NUR ---
JASEN and Dr. Richards met with Pt's DPOA, Karissa, in [facility] office. Medications and labs were discussed. Karissa continues to work with [facility] to get Pt placed. Karissa did not have any quesiton or concerns during the meeting. JASEN will continue to follow
[2020-06-23 19:02] VITALS: BP 117/73
--- NOTE | 2020-06-24 01:18 | NUR ---
ASSESSMENT: PT IS ALERT TO SELF ONLY. PT BELIEVES THAT LG (ANOTHER PT) IS HER AND GETS AGITATED WITH OTHERS THAT INTERACT WITH HIM. BOTH PT'S WERE PLACED FAR APART FROM EACH OTHER FOR SAFETY CONCERNS. PT DOES NOT KNOW THE FACILITY THAT SHE IS IN NOR THE DAY OF THE WEEK/MONTH. VSS, AFBRILE. IN EBONY CHAIR UNTIL APPROXIMATELY 2130. DENIES PAIN, SOB AND N/V. DENIES SI/HI. TOOK MEDS WITHOUT DIFFICULTY. WAS BEING AGGRESSIVE WITH TECH (ALEX) AND NOT WANTING TO FOLLOW COMMANDS. THIS RN INTERVENE AND PT FOLLOWED SIMPLE COMMANDS OF THIS RN. SLOW PROGRESS TOWARDS DC GOALS., WILL CONTINUE TO MONITOR.
[2020-06-24 05:12] LABS: CREATININE 0.5 mg/dL (0.6-1.0); POTASSIUM 3.9 mmol/L (3.5-5.1)
[2020-06-24 08:52] VITALS: BP 132/61
--- NOTE | 2020-06-24 20:32 | NUR ---
0700 ASSUMED CARE OF PATIENT, PATIENT IN BED AT THAT TIME. PATIENT TO DAYROOM IN . REFUSED AM MEDICATION, ATTEMPTED TO GIVE MULTIPE TIMES WITH PATIENT REFUSING AND YELLING AT TANK TRUCK MECHANIC STATING "I DO NOT TAKE MEDICATION, I ONLY FIX WILLIES MEDS. I HAVE NO MEDICATION". PATIENT CURSING WHEN ATTEMPTING TO GIVE MEDICATIONS. OLANZAPINE 3.75 IM GIVEN FOR REFUSAL OF MEDS. ONE TIME MANUAL RESTRAINT ORDER RECIEVED FOR IM INJECTION. PATIENT CONTINUES TO YELL AT STAFF THROUGH OUT THE DAY. PATIENT INTRUSICE WITH OTHER MALE PATIENT AND TOUCHING OTHERS INAPPROPRIATLY. PATIENT COUGHT WITH HAND IN ANOTHER PATIENTS CROTCH. PATIENT REMOVED AND BECAME COMBATIVE AGAIN. NOTIFIED AND ORDER FOR 1:1 RECIEVED. PATIENT CONTINUED TO MIGRATE TOWARDS MALE PATIENT AND STAFF ATTEMPTING TO REORIENT PATIENT THAT THE MALE PATIENT IS NOT HER . PATIENT COMBATIVE WITH CARES ATTEMPTING TO BITE, SCRATCH AND HIT. PATIENT INCONTINENT WITH VOIDS NOTED IN BRIEF.
[2020-06-24 20:53] VITALS: BP 130/95
--- NOTE | 2020-06-25 03:54 | NUR ---
PT SLEEPING IN THE GERICHAIR AT DAYROOM.PT IN NO ACUTE DISTRESS.PT CONTINUES TO BE IMPULSIVE AND IRRITABLE W/EVERY REQUEST THAT STAFF MAKES DURING CARE.REFUSED HER MEDS.IM MEDS GIVEN PER ORDERS D/T MEDS REFUSAL.ONETIME MANUAL RESTRAINES WAS UTILIZED TO GIVE IM MEDS.REMAINS AOX1.ON 1:1 SUPERVISION D/T INAPPROPRIATE BEHAVIOUR TO SELF AND TO OTHER PTS.NO INCIDENCE THIS SHIFT SO FAR.DENIES PAIN.POC IS TO CONTINUE W/ CURRENT MANAGEMENT.
[2020-06-25 08:53] VITALS: BP 110/78
--- NOTE | 2020-06-25 12:15 | NUR ---
RT Progress Note- Fabiana has not been an active participant in recreation therapy groups since her admission to unit. Fabiana has poor attention and frequently wanders unit, limiting her participation. Fabiana has also displayed poor social boundaries and can take time to redirect. RIM ROLLER SETTER will continue to encourage presence in appropriate activities such as exercise and music, when patient is able to.
--- NOTE | 2020-06-25 18:14 | NUR ---
0700 ASSUMED CARE OF PATIENT, PATIENT IN BED AT THAT TIME. PATIENT'S BRIEF CHANGED PRIOR TO COMING OUT TO DAYROOM. PATIENT IN WC AND TO DAYROOM. MEDICATIONS TAKEN WHOLE WITHOUT DIFFICULTY. PATIENT CALM AND COOPERATIVE AT THAT TIME. ATE BREAKFAST WITHOUT ASSISTANCE. LS CLEAR, BS ACTIVE. PATIENT DROWSY AND SLEEPS OFF AND ON IN GERICHAIR. ANSWERS SIMPLE QUESTIONS WITHOUT GETTING AGGITATED. DENIES SI/HI.
[2020-06-25 19:40] VITALS: BP 93/54
[2020-06-26 01:00] VITALS: BP 93/54
--- NOTE | 2020-06-26 02:48 | NUR ---
Assumed care on 06/25/20 @ 1900, cooperated with assessment, HRRR, Lungs CTA bilat, ABD N x 4q. Pt cannot state when she last had a bm. A&Ox1 to person only. Became agitated while in bed @ 1:17, provided PRN Olanzapine 5mg P.O. and Tylenol 650 mg p.o. patient continued to be agitated and came out of her bed, transferred herself into the seble chair. Slapped and hit staff attempting to help her. Bit one staff memeber on the hand. Provided olanzapine 5mg IM @ 02:30. Patient cooperated with injection. Reclined in the seble chair and calmed after the injection.
[2020-06-26 10:12] VITALS: BP 124/72
[2020-06-26 11:03] VITALS: BP 124/72
--- NOTE | 2020-06-26 11:29 | NUR ---
Assumed care from table games shift manager nurse @ 0700, Pt prior to breakfast was alert and cooperative and allowed this nurse and METAL SOLDERER to complete mony care and get her changed. Pt ate breakfast took her morning medication okay and shortly after became very fidgety and impulsive, pt was resistant to redirection and became very combative attempt to hit, kick and bite the nurse. Pt had to receive an IM dose of Olanzapine, Attempt to put lap belt on pt to remind pt not to get up without assistance. Pt requires frequent monitoring pt will ask to go to bathroom but she remains incontinent of bowel and bladder. Even after IM injection pt remains combative with cares. Alert x 1-2, HRR, LCTAB, BS + x 4 Quad, abd soft and non tender. Denies SI/HI, visual/Auditiory hallucinations.
[2020-06-26 19:47] VITALS: BP 114/83
[2020-06-27 03:23] VITALS: BP 114/83
--- NOTE | 2020-06-27 06:19 | NUR ---
Assumed care on 06/26/20 @ 1900, reclined in a seble chair. Relaxed and quiet, speaks when spoken to, however resists assessment and hits when staff is within arms reach. Not alert to self, mumbling and grumbling when spoken to. VSS. Confusion noted. Agitation with cares. Takes meds whole with water. Transferred to bed and given incontinent care @ HS. Slept 9.2 hours overnight.
[2020-06-27 08:00] VITALS: BP 105/67
[2020-06-27 11:23] VITALS: BP 105/67
--- NOTE | 2020-06-27 11:37 | NUR ---
Assumed care from motor driver nurse at 0700, pt was resting comfortablly in bed, pt was assisted with getting up and and getting dressed by PCT, pt is still a little sleepy this morning but did wake up to eat breakfast and ate 100 percent, pt mood and behavior has improved, she is currently continent and asked to go to bathroom, this nurse assisted pt and the pt was able to follow commands and assist with transfers and assist with mony care, Pt is alert and oriented x 1, answers questions appropriately, with occasional impulsiveness, and anxiety but able to be redirected. MARTY, BS + x 4 Q, will continue to monitor the remainder of this shift.
[2020-06-27 14:54] LABS: CALCIUM 9.5 mg/dL (8.5-10.1); CREATININE 0.7 mg/dL (0.6-1.0); POTASSIUM 4.1 mmol/L (3.5-5.1)
[2020-06-27 21:00] VITALS: BP 118/71
--- NOTE | 2020-06-27 23:21 | NUR ---
CARE WAS ASSUMED AT 1900 , PT AT THE DININNG AREA SITTING ON RECLINER. SHE COMPLAINED OF PAINS DURING ASSESSMENT BUT UNABLE TO LOCALIZED PAIN.SHE DENIES SI/AVH/HI. SHE IS CALM BUT CONFUSSED AND UNABLE TO MAITAIN EYE CONTACT. LUNGS ARE CLEAR BS ACTIVE X 4 QUAD. PRN TYLENOL 650MG GIVEN WITH GOOD EFFECT. MEDICATION WERE TAKEN WITHOUT ANY ISSUES. ALARM ON CHAIR AND LOCKS IN PLACE. NONE SKID SOCKS ON AND STAFF CONTINUE TO MONITOR. PT IS TOILETED PER SCHEDULED AND PRN. PT WAS GIVEN ZYPREXA 5MG PRN DUE TO INCREASED RESTLESNESS. CONTINUE TO MONITOR AND ASSESS. SHE AMBULATES WITH EBONY CHAIR AND UNSTEADY ON HER FEET.FLUID WERE OFFERED AND SHE DRANK 200MLS.
[2020-06-28 06:12] LABS: CALCIUM 8.9 mg/dL (8.5-10.1); CREATININE 0.5 mg/dL (0.6-1.0); POTASSIUM 4.1 mmol/L (3.5-5.1)
[2020-06-28 09:17] VITALS: BP 112/71
[2020-06-28 09:24] VITALS: BP 112/72
--- NOTE | 2020-06-28 09:33 | NUR ---
ASSUMED CARE AT 0700 THIS MORNING. PT. SITTING IN EBONY CHAIR. SHE IS TAKEN TO THE BATHROOM Q 2 HOURS AND PRN. SHE IS IRRITABLE AND COMPULSIVE WHEN STAFF ATTEMPTS TO ASSIST HER. SHE BECOMES EASILY AGITATED, STRIKING OUT, ATTEMPTING TO BITE AT TIMES. SHE TOOK HER MEDICATIONS CRUSHED AND IN APPLESAUCE WITHOUT PROBLEMS NOTED. WHEN STAFF IS NOT ATTEMPTING TO ASSIST HER SHE WILL MOST OF THE TIME SIT QUIETLY. SHE HAS NOT BEEN ANSWERING TO HER NAME THIS MORNING. SHE IS AAOX1.
--- NOTE | 2020-06-28 15:30 | NUR ---
ASSUMED CARE OF PT. AT 0630 THIS MORNING. PT. SITTING IN RECLINING CHAIR. STAFF TRIED TO ASSIST HER INTO CHAIR, GOING TO THE RESTROOM, CHANGING CLOTHING, SHE EASILY BECAME AGITATED AND WOULD STRIKE OUT AT STAFF. SHE EVEN TRIED TO BITE A STAFF MEMBER TODAY BUT DID NOT GET THIS ACCOMPLISHED. STAFF PERSONAL STATED SHE DID NOT GET A "BITE ON HER ARM BEFORE SHE MOVED IT". SHE HAS BEEN RESPONDING TO INTERNAL STIMULI A LOT TODAY AND OFTEN. SHE DID TAKE HER MEDICATIONS CRUSHED AND IN APPLESAUCE. NO NEW PROBLEMS NOTED OR VOICED.
[2020-06-28 20:05] VITALS: BP 115/76
--- NOTE | 2020-06-29 01:26 | NUR ---
HAS BEEN IN DINING ROOM IN [facility] SINCE START OF SHIFT.TOILETED AT APPROX. 2200 AND INCONTINET,ORAL CARE PROVIDED-SOME MILD RESISITANCE. DID TAKE PO MEDS WITH MUCH ENCOURAGEMENT CRUSHED AND IN ICE CREAM BUT REQUIRED MULTIPLE ATTEMPTS . ORIENTED TO NAME ONLY-STATES THIS IS HER HOUSE AND WE ARE ALL TRESSPASSERS BREAKING IN. [facility] THEN WILL DOZE BRIFLY IN CHAIR-[place] RISK
[2020-06-29 10:30] VITALS: BP 120/72
--- NOTE | 2020-06-29 11:38 | NUR ---
1135 RESUMMED CARE FROM OVERNIGHT THIS AM, PATIENT IN BED ASLEEP. WE GOT PATIENT UP DID HYGIENE TOOK PATIENT TO DAY ROOM FOR BREAKFAST. PATIENT ATE SOME OF BREAKFAST WOULD NOT TAKE AM MEDS SO SHE HAS A BACK UP IM FOR REFUSES MEDS. PATIENT IS CONFUSED AND IS SOMETIMES COMBATIVE WITH CARES PATIENTS ABDOMEN SOFT BOWEL SOUUNDS PRESENT. PATIENTS LUNGS CLEAR DR GAR CALLED GRANDDAUGHTER TO SET UP A MEETING. PATIENT DENIES SI/HI/ BUT IT APPEARS PATIENT IS HAVING AH/VH. PATIENT BENDS DOWN AND IS TRYING TO ADVERTISING MATERIAL DISTRIBUTOR THINGS THAT ARE NOT THERE. WILL CONTINUE TO MONITOR PATIENT FOR SAFETY AND BEHAVIORS.
[2020-06-29 20:41] VITALS: BP 114/67
--- NOTE | 2020-06-30 05:01 | NUR ---
Assumed care on 06/29/20 @ 1915, patient had a fall an hour before, placing herself on the floor, with no injury noted. VSS @ 19:15 114/67 97 18 97.8 98%. Continued to become agitated and @ 19:35 gave Zyprexa 7.5 IM and also obtained an order for a manual restraint while giving injection x1 security and x1 nurse. Order for lap edouard obtained and applied to patient's waist as she sat in the seble chair. Patient calmed and was able to sit in the chair without impulsively exiting the chair in an unsafe manner. @ 21:30 took her meds crushed in yogart. Slept in seble chair and slept well during the night, alternately sleeping and awake. Chair alarm in place in seble chair.
[2020-06-30 09:35] VITALS: BP 104/57
--- NOTE | 2020-06-30 13:17 | NUR ---
PATIENT CARE ASSUMED AT 0700 - WAS IN DINING LUDWIG SITTING QUIETLY IN EBONY CHAIR. APPROACHED BUT PATIENT VERY SLEEPY AND NODDED OUT WHEN AROUSED. BREAKFAST ARRIVED AND MEDICATIONS ADMINISTERED IN APPLESAUCE. SEVERAL TEASPOONS OF OATMEAL GIVEN BUT SHORTLY AFTERWARDS PATIENT NODDED OUT. AFTERNOON CAME PATIENT MORE ALERT. LAB ARRIVED TO DRAW BLOOD AND IT TOOK SEVERAL STAFF MEMBERS TO ASSIST WITH THIS - UNSUCCESSFUL AT SEVERAL ATTEMPTS. PATIENT CONFUSED AND ALERT TO SELF. POOR APPETITE - STAFF HAS ATTEMPTED SEVERAL TIMES TO ENCOURAGE EATING - BUT CONSUMES VERY LITTLE. WILL CONTINUE TO MONITOR PATIENT FOR SAFETY AND ADDRESS ANY CONCERNS THAT ERUPT ACCORDINLY.
[2020-06-30 19:23] VITALS: BP 112/57
[2020-06-30 20:20] VITALS: BP 112/57
--- NOTE | 2020-07-01 02:45 | NUR ---
PATIENT HAS BEEN SITTING UP IN DINING ROOM [facility] SINCE I ASSUMED CARE OF PATIENT AT 1900. SHE HAS BEEN CALM AND COOPERATIVE. INCONTINENCE CARES DONE ROUTINELY AND PRN. PATIENT TAKEN BACK TO ROOM FOR THIS AND TOOK TO PEOPLE TO ASSIST PATIENT. SHE BECOMES VERY COMBATIVE AND YELLS AND UNABLE TO BE REDIRECTED WHEN CARES ARE BEING DONE. PATIENT BROUGHT BACK OUT TO DINING ROOM. ASKED PATIENT IF SHE WANTED A DRINK AND SHE SAID YES. SHE DID DRINK A SMALL CUP OF ICE WATER. PATIENT WAS CONCERNED ABOUT HER ANGELICA AND WANTING TO SEE HIM. PATIENT HAS BEEN SLEEPING OFF AND ON IN RECLINER. WHEN AWAKE SHE TALKS TO HERSELF AND SPEAKS TO OTHER PEOPLE SHE IS SEEING. SHE PICKS AT HER BLANKET AND PICKS AT THINGS SHE THINKS SHE SEES IN HER CHAIR IF SHE IS SEWING. PATIENT HAS BEEN CALM AND COOPERATIVE ALL NIGHT EXCEPT FOR CARES WHERE SHE IS COMBATIVE. SHE DOES HAVE AUDIO/VISUAL HALLUCINATIONS. DENIES PAIN. NO SI/HI BEHAVIORS NOTED. PATIENT TOOK HER MEDS CRUSHED IN PUDDING. SHE IS VERY PARANOID WHEN GIVEN FOOD BECAUSE SHE IS AFRAID MEDS ARE IN IT. PATIENT DOES BETTER IF GIVEN THE CUP OF PUDDING AND LET HER EAT ON HER OWN. PATIENT WATCHED CLOSELY AT A DISTANCE TO MAKE SURE ONLY SHE IS EATING THE PUDDING WITH MED IN IT AND CONTAINER TAKEN AWAY AND THROWN AWAY IMMEDIATELY WHEN DONE. PATIENT'S RECLINER IS LOCKED CHAIR ALARM IS ON AND IN PLACE. CONTINUING TO MONITOR.
[2020-07-01 10:10] VITALS: BP 120/67
--- NOTE | 2020-07-01 19:10 | NUR ---
0700 ASSUMED CARE OF PATIENT. PATIENT ASLEEP IN GERICHAIR. PATIENT SLEEPS ALL DAY REFUSING MEDICATION AND MEALS. PATIENT REPOSITIONED IN CHAIR AND CONTINUED TO SLEEP. PATIENT RESPONDS TO NAME AND WHEN ASKED IF WANTED YOGUR PATIENT AGREES TO HAVE SOME. WHEN APPROCHED PATIENT, PATIENT ASLEEP AND UNABLE TO KEEP EYES OPEN. 1800 PATIENT AWAKE AND STANDS UP NEAR EBONY CHAIR TRANSITION MGR AT SIDE. PATIENT CALM AND COOPERATIVE. LS CLEAR, BS ACTIVE.
[2020-07-01 19:30] VITALS: BP 107/61
--- NOTE | 2020-07-01 22:09 | NUR ---
Assumed care of patient at 1900. Pt sitting in seble chair in day room, calm and relaxed. Denies pain. No HI/SI voiced. Oriented to self only, at times believes she is at home. Allowed this contract technical writer and another RN to assist her to bedside commode, cooperative with toileting. Meds crushed in ensure, drank 80% of ensure and 80% of vanilla pudding while being monitored. Patient became impulsive and attempted to get up from seble chair several times unassisted and would not accept RN or aid help, agitation with assistance. Believes she is at home and staff are in her home uninivited "why are you here? This is my home." Patient also stating she needed to get "Marcos". Patient reminded that her is a patient at the hospital. Patient eventually accepted assistance and has lap edouard applied per order, dieter educated to purpose of lap edouard. Patient now sitting calmly in gerichair talking to unseen stimuli or self, possible hallucinations. Will continue to monitor.
--- NOTE | 2020-07-02 05:10 | NUR ---
0345 Patient became agitated, yelling out, attempting to get up, swatting at staff assistance. Provided PO olanzapine for agitation. Did become calm approx 0430 and began to appear to fall asleep in regular day room chair. She would occasionally scoot to end of seat and attempt to stand unassisted. When staff would attempt to assist, she became agitated and slapped at and attempted to bite staff. Staff was able to assist her into gerichair and apply lap edouard for patient safety. Patient denied pain and toileting, brief clean and dry. Continuing to monitor for safety. Patient did not sleep overnight.
--- NOTE | 2020-07-02 08:24 | NUR ---
RT Progress Note- Fabiana has been unable to engage in recreation therapy groups this review period as she has not been alert during much of scheduled programming. PROTECTION MGR will continue to offer stimulating activities when appropriate.
[2020-07-02 09:44] VITALS: BP 130/78
--- NOTE | 2020-07-02 11:50 | NUR ---
0700 ASSUMED CARE OF PATIENT, PATIENT IN DAYROOM AWAKE IN CHAIR. PATIENT CALM AND COOPERATIVE AT THAT TIME. FEEDING SELF WITHOUT DIFFICULTY. SLEEVE SETTER SAFETY STITCH ASKS PATIENT IF SHE IS READY FOR HER MEDICATION, PATIENT STATES "YES, THANK YOU". MEDICATION TAKEN WHOLE WITHOUT DIFFICULTY. OBSERVED PATIENT ATTEMPTING TO GET OUT OF WC, WHEN ASSISTING PATIENT BACK INTO WC PATIENT ATTEMPTED TO BIT SLEEVE SETTER SAFETY STITCH. PATIENT YELLING AND CURSING AT THAT TIME. PATIENT INCONTINENT AND BRIEF CHANGED WITHOUT INCIDENT. CONTINUES TO PROPELL SELF IN WC. BS ACTIVE DENIES SI/HI, NO C/O PAIN.
--- NOTE | 2020-07-02 22:26 | NUR ---
1900 ASSUMED CARE OF PATIENT. PATIENT IN WHEELCHAIR IN LUDWIG, ACTIVELY WHEELING HERSELF AROUND AT START OF SHIFT. PT ATTEMPTING TO STAND UNASSISTED IN LUDWIG, RESISTANT TO STAFF ASSISTANCE. PT APPEARED TO BE TIRED AT APPROX 2000. ASSISTED TO GERICHAIR. GIVEN HS MEDICATION CRUSHED IN ICE CREAM, PATIENT SLEEPY IN CHAIR, ROUSED FOR HS MEDS AND ASSESSMENT. ORIENTED TO SELF ONLY, BELIEVES SHE IS AT HOME, DID NOT ANSWER REMAINING ASSESSMENT QUESTIONS. REACHES FOR SOMETHING THAT IS NOT THERE AT TIMES AND TALKS TO UNSEEN STIMULI AT TIMES. APPEARS COMFORTABLE. WILL CONTINUE TO MONITOR.
[2020-07-03 07:27] LABS: CREATININE 0.5 mg/dL (0.6-1.0); POTASSIUM 4.5 mmol/L (3.5-5.1)
[2020-07-03 08:52] VITALS: BP 102/53
--- NOTE | 2020-07-03 16:43 | NUR ---
0700 ASSUMED CARE OF PATIENT, PATIENT ASLEEP IN CHAIR AT THAT TIME. PATIENT HAS A FEW SIPS OF ENSURE AND FALLS ASLEEP. BANDER UNABLE TO GIVE MEDICATION PATIENT CONTINUES TO SLEEP. PATIENT SLEEPS THROUGH PART OF THE ASSESSMENT, LS CLEAR, BS ACTIVE. PATIENT AWAKES AND EATS LUNCH LATE. PATIENT ATE 90% OF LUNCH. PATIENT TRANSFERED TO PATIENT AWAKE AND ALERT, ORIENTED TO SELF ONLY. PROPLELLS SELF AROUND DAYROOM AND LUDWIG. 1700 MEDICATION TAKEN CRUSHED IN ICE CREAM WITHOUT DIFFICULTY. PATIENT SMILING AND ENJOYING GETTING HER NAILS DONE WITH STAFF. WILL CONTINUE TO OBSERVE
--- NOTE | 2020-07-03 20:53 | NUR ---
ASSUMED PT CARE AT AROUND 1915 HRS. PT OBSERVED IN HER WCHAIR MOVING AROUND. VERY CONCERNING THAT SHE BENDS FORWARD TO PICK IMAGINARY OBJECTS ON THE FLOOR MAKING IT EASY FOR HER TO FALL FORWARD. SHE REMOVES HER YELLOW SOCKS, SO I TIED THEM ON CHAIR. WHEN I TRIED TO TALK TO HER, SHE WOULD CUSS ME OUT. PT SAID " I HAVE TOO MANY FRIENDS, I DONT WANT TO BE YOUR FRIEND". PT WENT TO THE DAY AREA AND WAS TRYING TO HOLD ON TO CABINETS, REFUSING TO BE TOUCHED-OLANZPINE PO PRN GIVEN.PT TOOK THE MEDS IN ICE CREAM.MADE SURE CHAIR ALARM IS IN PLACE.PT STILL MOVING AROUND AND WOULD NOT STAY IN DAY AREA. CONTNUING TO CHECK ON HER ATLEAST EVERY 10 MINUTES.
[2020-07-03 21:10] VITALS: BP 121/68
[2020-07-03 22:10] VITALS: BP 121/68
--- NOTE | 2020-07-03 22:40 | NUR ---
AT ABOUT 2109, PT OBSERVED ON THE FLOOR INFRONT OF W/CHAIR. CHAIR ALARM GOING OFF. LOCATION WAS [facility]-NEXT TO DAY AREA. LIBERTY APPROACHED AND ASKED WHAT HAPPENED, SHE SAID.." I CAN SIT ON THIS F FLOOR". PT DID NOT APPEAR TO BE IN DISTRESS.SHE WANTED TO BE LEFT ALONE, RESISTED TRANSFER TO THE CHAIR, BUT WITH MORE STAFF SUPPORT, SHE WAS ABLE TO GET ON THE W/CHAIR. PT WAS VERY AGITATED.SHE WAS PLACED ON A EBONY CHAIR. DR GAR NOTIFIED AND ORDERED ONE TIME DOSE OF ATIVAN. MEDICATION GIVEN, PT IS NOW IN LAUREN AREA AND APPEARS CALM, TELLING ME "HONEY, THANKYOU". HEAVY FORGER HELPER NOTIFIED OF FALL AT 2115 HRS. I CALLED AIDA ROSE @[phone] AT 2218HRS AND GOT A FULL VOICEMAIL. PT ASSESSMENT COMPLETED AND PT SUSTAINED NO INJURIES.LAST VITALS AT 2209 WERE HR 83,02 99%, BP 128/67, T 98.0.
[2020-07-04 05:10] LABS: CREATININE 0.4 mg/dL (0.6-1.0)
[2020-07-04 10:23] VITALS: BP 91/67
[2020-07-04 10:33] VITALS: BP 91/67
--- NOTE | 2020-07-04 11:00 | NUR ---
ASSUMED CARE AT 0700 THIS MORNING. PT. UP IN RECLINING CHAIR. SHE IS RESTING COMFORTABLY IN THE CHAIR. SHE IS QUIET UNTIL STAFF ATTEMPTS TO WORK WITH HER. SHE WILL THEN BECOME COMBATIVE ATTEMPTING TO STRIKE AT STAFF AND/OR BITE. SHE REFUSED TO EAT BREAKFAST, BUT DID TAKE HER MORNING MEDICATIONS CRUSHED AND IN APPLESAUCE. SHE CONTINUES TO SLEEP IN THE RECLINING CHAIR AT THIS POINT.
[2020-07-04 19:03] VITALS: BP 101/71
[2020-07-04 21:00] VITALS: BP 101/71
--- NOTE | 2020-07-04 22:46 | NUR ---
ASSUMED CARE AT 1900, PATIENT LYING IN BED WITH BED ALARM ACTIVATED. PATIENT SLEEPING, DID NOT TAKE 2100 DUE TO PATIENT SLEEPING. NO S/S OF DISTRESS. VITALS WNL. WILL CONTINUE TO MONITOR.
[2020-07-05 09:06] VITALS: BP 125/59
[2020-07-05 12:24] VITALS: BP 125/59
--- NOTE | 2020-07-05 12:42 | NUR ---
ASSUMED CARE TODAY AT 0700. SHE IS IN A RECLINING CHAIR, ASLEEP. SHE IS DIFFICULT TO WAKE UP AT THIS TIME. THIS RN DID HAVE A BIT OF DIFFICULTY GETTING HER TO TAKE HER MORNING MEDICATIONS, HOWEVER, SHE DID TAKE THEM. SHE DID NOT EAT WELL TODAY SHE IS ASLEEP. NOW NEW PROBLEMS NOTED OR VOICED. WILL CONTINUE TO MONITOR.
[2020-07-05 19:54] VITALS: BP 108/57
--- NOTE | 2020-07-06 04:49 | NUR ---
07-05-20 CARE TRANSFERRED 1900 OBSERVED PT SITTING IN RECLINER IN DAY ROOM. LATER PT AAOX1, VSS, RR EVEN AND NONLABORED ON RA. PT DENIES SI/HI AND PAIN. PT PRESENTED CALM AND COOPERATIVE, NOTED PT REDUCTION IN VERBAL COMMUNICATION. PT DRANK 240ML WATER. LATER PT ATE 1 AND 1/2 CUP OF ICE CREAM AND HAD NOT DIFFICULTIES WITH MEDICATION. RECEIVED REPORT FROM OIL FIELD WORKER THAT PT DRANK 240ML OF WATER. PT BED WAS ADJUSTED FOR COMFORT. ZERO S/S OF ACUTE DISTRESS NOTED, PT WILL CONTINUE TO BE MONITOR PER [facility] PROTOCOL.
[2020-07-06 09:44] VITALS: BP 125/64
[2020-07-06 10:32] VITALS: BP 125/64
[2020-07-06 18:50] VITALS: BP 157/76
--- NOTE | 2020-07-06 19:44 | NUR ---
Assumed pt care at 0700. pt was sedated. Assessments completed, vss. No meds was given to pt. no sign of acute distress noted upon assessments. no sign of si/hi, No sign of pain. pt ambulates with a EBONY CHAIR. PT DID NOT EAT MEALS DUE TO PT BEING SEDATED. PT grand daughter called to get update on pt. PT Grand daughter requested to speak with Dr GAR. DR gar was notified about grand daughter's concerns. At approximately 1830, pt woke upon. at this time pt is in the day room watching TV. will continue to monitor.
[2020-07-06 23:00] VITALS: BP 102/64
--- NOTE | 2020-07-07 04:24 | NUR ---
07-06-20 CARE TRANSFERRED 0 OBSERVED PT SITTING IN W/CHAIR AT TABLE IN DAY ROOM. LATER PT PRESENTED DROWSY, AAOX1, RECEIVEDE REPORT FROM HEATING UNIT INSTALLER THAT PT B/P ELEVATED, PT AT THIS TIME WAS REFUSING ASSESSMENT. PT DENIED PAIN AND SI/HI. LATER PT WAS REAPPROACHED AND PT MANUAL B/P 102/64, P 94, RR 16 EVEN AND NONLABORED ON RA, PT HT RR, LUNGS CLR, ABD ACTIVE/SOFT/FLAT. PT ATE 80% OF HS SNACK, PT BED WAS ADJUSTED FOR COMFORT. LATER PT PRESENTED TALKATIVE WITH CONVERSATION GOING IN MANY DIFFERENT DIRECTIONS, PT WAS BROUGHT TO DAY ROOM AND OBSERVED HER MILD AGITATION, WHEN ASKED SHE STATED "SHE WAS HUNGRY, WANTED ICE CREAM AND M&M" PT ATE TWO ICE CREAM WITH A PACK OF CHOCOLATE COOKIES. ZERO S/S OF ACUTE DISTRESS NOTED, PT WILL CONTINUE TO BE MONITOR PER [facility] PROTOCOL.
[2020-07-07 05:58] LABS: HEMATOCRIT 40.1 % (37.0-47.0); HEMOGLOBIN 13.1 gm/dL (12.0-15.0); MCH 31.1 pg (26.0-34.0); MCHC 32.7 g/dL (28.0-37.0); MCV 95.1 fL (80.0-100.0); RBC 4.22 mil/uL (4.20-5.00); RDW 14.6 % (10.5-14.5); WBC 10.7 thou/uL (4.0-11.0)
[2020-07-07 06:23] LABS: CALCIUM 9.1 mg/dL (8.5-10.1); CREATININE 0.4 mg/dL (0.6-1.0); POTASSIUM 3.6 mmol/L (3.5-5.1)
[2020-07-07 08:59] VITALS: BP 110/61
--- NOTE | 2020-07-07 11:33 | NUR ---
Referral sent to [facility]
--- NOTE | 2020-07-07 14:32 | NUR ---
JASEN called Batsheva at [facility], . Batsheva informed the Pt has been accepted at [facility]. Batsheva stated they could accept the Pt Sunday. Batsheva stated she would call JASEN with the time for transportation.
--- NOTE | 2020-07-07 15:17 | NUR ---
Assumed pt care at 0700. pt was alert and oriented to self. pt was sedated AM. 9am meds were held. Assessments completed, vss. pt woke up before lunch and ate 40% of meal. At this time pt denies si/hi. No c/o pain. ambulates with a w/c. No sign of acute distress noted upon assessments. pt was agitated but redirectable. PT WAS INCONTINENT X3. PT IS CURRENTLY IN THE DAY ROOM SITTING QUIETLY. DAUGHTER CALLED TO CHECK UPON PT. Will continue to monitor.
[2020-07-07 20:20] VITALS: BP 110/61
--- NOTE | 2020-07-07 22:48 | NUR ---
PATIENT WAS BANGING INTO NURSE STATION DOOR WITH WC AND YELLING FOR SOMEONE TO LET HER IN WHEN I CAME ON SHIFT THIS EVENING. I ASKED IF I COULD HELP HER WITH ANYTHING AND SHE YELLED,"LET ME IN." I EXPLAINED IT WAS THE NURSE'S STATION AND ONLY STAFF COULD COME IN. REDIRECTED PATIENT TO THE HALLWAY. SHE WENT TO THE EXIT DOOR AND WAS PUSHING ON THE DOOR AND TRYING TO GET OUT. I WENT DOWN AND TOLD HER THE DOORS WERE LOCKED FOR THE EVENING AND SHOWED HER THAT I COULDN'T OPEN THE DOOR EITHER. I REDIRECTED HER ATTENTION TO HER PINK POLISHED NAILS AND TOLD HER THAT I WOULD TAKE HER BACK TO THE DINING ROOM BECAUSE IT WAS SNACK TIME. SHE DID SIT QUIETLY AND EAT ICECREAM. LATER I PLACED HER CRUSHED HS MEDS IN PUDDING AND SAT IT BESIDE HER. I EXPLAINED I BROUGHT HER SOME PUDDING SHE COULD EAT IF SHE LIKED. SHE PICKED IT UP AND BEGAN EATING ONCE SHE THOUGHT I WASN'T WATCHING HER. I AND THE SENIOR HYDROGEOLOGIST'S WATCHED TO SEE THAT ONLY SHE HAD THE PUDDING AND DISCARDED WHEN IT WAS DONE. PATIENT BEGAN HALLUCINATING AROUND 2200 AND WAS YELLING OUT AT PEOPLE SHE WAS SEEING IN HER MIND. SHE WAS BECOMING LOUD. SHE DEMANDED TO USE A PHONE. HER CHAIR ALARM SHE HAD PULLED UP FROM UNDER HER AND IT WAS GOING OFF. SHE YELLED AND PUSHED STAFF AWAY WE WERE GOING TO REPOSITION IT UNDER HER. THEN I NOTICED SHE WAS HOLDING THE CHAIR ALARM PAD UP TO HER FACE LIKE SHE WAS TALKING ON THE PHONE. SHE WAS YELLING INTO IT "CALL ME BACK! YOU HEAR ME? CALL ME BACK." I DIRECTED STAFF TO LEAVE HER ALONE SHE THOUGHT SHE WAS ON THE PHONE. SHE BEGAN YELLING AT A MALE RESIDENT ACROSS THE ROOM. TRIED TO REDIRECT HER. SHE WOULD CONTINUE TO REACT TO ANYTHING THE MALE PATIENT SAID BY YELLING AT HIM WHETHER HE WAS SPEAKING TO HER OR NOT. OLANZAPINE 5MG PO WAS CRUSHED AND PLACED IN PUDDING. AGAIN, OFFERED THE PUDDING TO THE PATIENT. SHE DID TAKE IT AND IS EATING IT NOW. CONTINUING TO MONITOR. PATIENT. SHE IS SITTING IN RECLINER WITH FEET DOWN AND AT A TABLE. CONTINUING TO MONITOR.
--- NOTE | 2020-07-08 06:28 | NUR ---
PATIENT AWAKE FOR THE DAY. INCONTINENCE CARES DONE AND PT WITH BM. PATIENT WAS CLEANED. DENIES PAIN. PT SITTING UP IN RECLINER AT A TABLE. CHAIR ALARM IN PLACE AND ON. PATIENT IS CALM AND QUIET SO FAR THIS MORNING.
[2020-07-08 09:46] VITALS: BP 111/57
[2020-07-08 09:51] VITALS: BP 111/57
[2020-07-08] MEDS ORDERED: ZYPREXA 5 MG TAB5 M1 PO (10:58)
[2020-07-08] MEDS ORDERED: PEPCID20 MG PO (10:58)
[2020-07-08] MEDS ORDERED: DEPAKOTE SPRIN125 MG PO (10:58)
--- NOTE | 2020-07-08 11:12 | NUR ---
1110 RESUMMED CARE FROM OVERNIGHT SHIFT THIS AM, PATIENT SITTING IN DAY ROOM QUIET. PATIENT ATE BREAKFAST TOOK MEDICATION CRUSHED IN YOGART WITHOUT INCIDENCE. PATIENT ALERT ORIENTED TO SELF ONLY PATIENTS ABDOMEN SOFT BOWEL SOUNDS PRESENT. PATIENTS LUNGS CLEAR PATIENT UNABLE TO TELL ME ABOUT SI/HI/AH/VH AT PRESENT DUE TO COGNITIVE DO. PATIENT HAS NOT DISPLAYED ANY BEHAVIORS. PATIENT DISCHARGE INFORMATION CALLED TO [facility] AND SCRIPT SENT TO PHARM SCRIPT.
--- NOTE | 2020-07-11 14:00 | D ---
[facility] [place] [address] [place] [address] DISCHARGE SUMMARY Name: ALEX MARAVILLA Room #: 520-A [facility] IN M.R.#: [id number] Admission: 06/18/20 Attend Phys: Jean Paul Richards DO Discharge: 07/08/20 Date of : 42 Report #: [id number] THIS REPORT FOR: cc: FAM - No family physician/PCP FAM - No family physician/PCP Jean Paul Richards DO ~ DOC #: [id number] JEAN PAUL Richards DO DATE OF SERVICE: 07/08/2020 INPATIENT PSYCHIATRIC DISCHARGE SUMMARY ATTENDING PSYCHIATRIST: Jean Paul Richards DO. SKIN CARE TECHNICIAN: Wesley Cam MD. DISCHARGE DIAGNOSES: Major neurocognitive disorder, unspecified etiology with behavioral disturbance, modest improvement. MEDICAL COMORBIDITIES: Include low normal blood pressure, well controlled and resolved. Stable BP, now on midodrine. 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 with improvement. B12 deficiency, continue replacement. Malnutrition and hypoalbuminemia, on Ensure. The patient is being discharged to [facility]. Psychiatric and medical care to be provided by receiving facility. DISCHARGE DIET: Regular with Ensure Enlive with meals. PHYSICAL ACTIVITY: The patient has been essentially nonambulatory on our unit, basically spending the day in a Rasheeda chair despite our efforts to get her more mobilized. DISCHARGE MEDICATIONS: Electronically sent prescriptions. They are as follows: Depakote sprinkles 500 mg oral twice per day, olanzapine 10 mg oral daily at 1700, famotidine 20 mg oral daily. PERTINENT LABORATORY DATA: This admission, hematology on 07/07/2020, H and H 13.1 and 40.1, white count 10.7, platelet count 218. Chemistry on 07/07/2020, sodium of 148, potassium 3.6, chloride 109, bicarbonate 25, anion gap 14, BUN 22, creatinine 0.4, estimated GFR is 187, glucose 98, calcium 9.1. Most recent Depakote level on 500 b.i.d. was 76 on 07/03/2020. COVID-19 PCR serology was negative. Urinalysis back on 06/18/2020 showed 10-30 bacteria and leukocytes, 2+ ketones. Urine culture was not triggered. There was a blood culture this admission, which showed no growth. The patient will require 04/09 memory care. REASON FOR ADMISSION: Background of 06/18/2020, a 80-[place] [address] DISCHARGE SUMMARY Name: ALEX MARAVILLA Room #: 520-A [facility] IN [facility].#: [id number] Admission: 06/18/20 Attend Phys: Jean Paul Richards, Discharge: 07/08/20 Date of : 42 Report #: [id number] was last admitted here almost exactly 2 years prior in 06/2018, brought in by her granddaughter who works here at [employer]. The patient was agitated the previous night, was getting out of the house, walking around the neighbor's house, knocking on their doors beyond what the family could manage as the patient lives with her and her son. HOSPITAL COURSE: The patient was admitted to Geriatric Psychiatry Unit. Throughout the hospitalization, we had difficulty finding a balance between her being too medicated and over sedated and her having aggressive behaviors including striking at staff. The patient's family did participate visit. There was some frustration over issues, had little control; however, the family wanted to bring in food from home, that is not permitted on the psychiatry unit. The patient had poor intake throughout the hospitalization. I will admit it is possible with home cooked food that she would have eaten better. That said, most of the issues were surrounding the use of medication. Prior to discharge, I had moved from b.i.d. olanzapine to a single dose of olanzapine and was 15 mg a day and I moved it to 10 mg a day. Also, the Depakote, I had briefly up to 750 mg, I backed that down a couple of days before discharge to 500 mg p.o. b.i.d., so most of this hospitalization, we were struggling to get enough, you know, good days, 3-4 good days where the patient could be placed. Her had been placed at [facility] and he was reported to have actually been admitted to this hospital and we were fortunately able to get the patient too be accepted there, so she could join him. CONDITION AT DISCHARGE: Stable. The patient was not suicidal or homicidal. PHYSICAL EXAMINATION: Seated in a Rasheeda chair and then wheelchair. MENTAL STATUS EXAMINATION: This is a well-developed, frail, somewhat ill-appearing black female appearing at least stated age. Attention limited. Concentration very limited. Speech intermittently spontaneous. Thought process nonlinear. mood/affect:congruent constricted Thought content, poverty of thought. Denied SH. She denies auditory, visual, or tactile hallucinations. Memory noted to be grossly impaired. Insight impaired. Judgment impaired. Fund of knowledge was below average. Prognosis for this patient is quite guarded given her advanced dementia and unreliable compliance with eating and at times medication. JEAN PAUL Richards, DO [facility]NILESH [address] [address] DISCHARGE SUMMARY Name: ALEX MARAVILLA Room #: 520A-A [facility] IN M.R.#: [id number] Admission: 06/18/20 Attend Phys: Jean Paul Richards DO Discharge: 07/08/20 Date of : 42 Report #: [id number] <ELECTRONICALLY SIGNED> By: Jean Paul Richards DO 07/11/20 1400 1938 32 Jean Paul Richards DO /nt
== END 2020-07-08 16:15 | DRG 884 ==
LOC: EROBS 05:10 → SBH 05:10
PROVIDERS: Hospitalist; Psychiatry & Neurology Psychiatry; ADMIT Psychiatry & Neurology Psychiatry; ATTEND Psychiatry & Neurology Psychiatry
DX: F01.51 Vascular dementia, unspecified severity, with behavioral disturbance (principal); E87.0 Hyperosmolality and hypernatremia; E46 Unspecified protein-calorie malnutrition; Z68.1 Body mass index [BMI] 19.9 or less, adult; E53.8 Deficiency of other specified B group vitamins; F17.210 Nicotine dependence, cigarettes, uncomplicated; E86.1 Hypovolemia; Z90.710 Acquired absence of both cervix and uterus; Z88.0 Allergy status to penicillin; Z88.6 Allergy status to analgesic agent; Z88.8 Allergy status to other drugs, medicaments and biological substances; Z86.12 Personal history of poliomyelitis
CPT/HCPCS: 10880

== ENCOUNTER 2020-07-27 21:24 | Emergency (ER) | payer OTHER ==
[~2020-07-27] VITALS: Ht 152.4 cm; Wt 44.5 kg
[~2020-07-27 21:24] MED LIST changes: +PEPCID20 MG PO; +ZYPREXA 5 MG TAB5 M1 PO
[2020-07-28 02:23] LABS: URINE BILIRUBIN NEGATIVE (Negative); URINE BLOOD NEGATIVE (Negative); URINE CLARITY CLEAR; URINE COLOR YELLOW; URINE GLUCOSE-RANDOM* NEGATIVE (Negative); URINE KETONES NEGATIVE (Negative); URINE LEUKOCYTES-REFLEX NEGATIVE (Negative); URINE NITRITE-REFLEX NEGATIVE (Negative); URINE PROTEIN (DIPSTICK) NEGATIVE (Negative); URINE SPECIFIC GRAVITY 1.025 (1.005-1.035); URINE UROBILINOGEN 0.2 E.U./dl (0.2-1.0)
[2020-07-28 04:13] VITALS: BP 110/52
== END 2020-07-28 04:14 ==
LOC: ER 21:24
PROVIDERS: Emergency Medicine
DX: F43.9 Reaction to severe stress, unspecified (principal); F41.9 Anxiety disorder, unspecified; Z88.5 Allergy status to narcotic agent; Z88.6 Allergy status to analgesic agent; Z88.0 Allergy status to penicillin; F17.210 Nicotine dependence, cigarettes, uncomplicated

== ENCOUNTER 2020-08-10 15:27 | Emergency (ER) | payer OTHER ==
[~2020-08-10] VITALS: Ht 149.9 cm; Wt 46.3 kg
[2020-08-10] MEDS ORDERED: TYLENOL325 MG PO (15:37)
[2020-08-10] MEDS ORDERED: SIMETHICONE (15:39)
[2020-08-10] MEDS ORDERED: MAGNESIUM HYDROXIDE (15:39)
[2020-08-10] MEDS ORDERED: HALOPERIDOL 2 MG2 M1 PO (15:39)
[2020-08-10] MEDS ORDERED: [UNRECOGNIZED DRUG - OTHER] (15:39)
[2020-08-10] MEDS ORDERED: XANAX 0.5 MG0.5 MG PO (15:40)
[2020-08-10] MEDS ORDERED: ZOFRAN4 MG PO (15:40)
[2020-08-10 16:12] LABS: LYMPHOCYTES 27.8 % (24.0-44.0); MCH 31.7 pg (26.0-34.0)
[2020-08-10 16:14] LABS: ABSOLUTE NEUTROPHILS 5.2 thou/uL (1.4-8.2); BASOPHILS 0.8 % (0.0-2.0); EOSINOPHILS 1.6 % (0.0-3.0); HEMATOCRIT 39.6 % (37.0-47.0); MCHC 32.9 g/dL (28.0-37.0); MCV 96.2 fL (80.0-100.0); MONOCYTES 7.5 % (1.0-8.0); POLYS 62.3 % (36.0-66.0); RBC 4.11 mil/uL (4.20-5.00); RDW 15.6 % (10.5-14.5); WBC 10.2 thou/uL (4.0-11.0)
[2020-08-10 16:24] LABS: URINE BILIRUBIN NEGATIVE (Negative); URINE BLOOD NEGATIVE (Negative); URINE COLOR YELLOW; URINE GLUCOSE-RANDOM* NEGATIVE (Negative); URINE KETONES NEGATIVE (Negative); URINE LEUKOCYTES-REFLEX NEGATIVE (Negative); URINE NITRITE-REFLEX NEGATIVE (Negative); URINE PROTEIN (DIPSTICK) NEGATIVE (Negative); URINE SPECIFIC GRAVITY 1.015 (1.005-1.035)
[2020-08-10 16:24] LABS: CALCIUM 9.1 mg/dL (8.5-10.1); CREATININE 0.5 mg/dL (0.6-1.0)
[2020-08-10 16:25] LABS: URINE CLARITY HAZY
[2020-08-10 16:30] LABS: ALBUMIN 3.2 g/dL (3.4-5.0); TOTAL BILIRUBIN 0.5 mg/dL (0.2-1.0); TOTAL PROTEIN 6.6 g/dL (6.4-8.2)
[2020-08-10 17:46] LABS: PLATELET COUNT 238 thou/uL (150-400)
[2020-08-10 19:50] VITALS: BP 106/54
== END 2020-08-10 22:23 | disposition admitted as inpatient to this hospital (09) ==
LOC: ER 15:27
PROVIDERS: Physician Assistant
DX: F91.1 Conduct disorder, childhood-onset type (principal); F03.90 Unspecified dementia, unspecified severity, without behavioral disturbance, psychotic disturbance, mood disturbance, and anxiety; F17.210 Nicotine dependence, cigarettes, uncomplicated; Z88.0 Allergy status to penicillin; Z86.2 Personal history of diseases of the blood and blood-forming organs and certain disorders involving the immune mechanism; Z87.898 Personal history of other specified conditions; Z88.4 Allergy status to anesthetic agent; Z86.59 Personal history of other mental and behavioral disorders; Z20.822 Contact with and (suspected) exposure to COVID-19; Z88.5 Allergy status to narcotic agent; Z88.6 Allergy status to analgesic agent; Z88.1 Allergy status to other antibiotic agents

== ENCOUNTER 2020-08-10 20:00 | Inpatient (IN) | payer OTHER ==
[~2020-08-10] VITALS: Ht 149.9 cm; Wt 47.7 kg
[~2020-08-10 20:00] MED LIST changes: +HALOPERIDOL 2 MG2 M1 PO; +MAGNESIUM HYDROXIDE; +SIMETHICONE; +TYLENOL325 MG PO; +XANAX 0.5 MG0.5 MG PO; +ZOFRAN4 MG PO; +[UNRECOGNIZED DRUG - OTHER]
[2020-08-10 20:53] VITALS: BP 101/56
--- NOTE | 2020-08-11 02:54 | NUR ---
08-10-30 PT ARRIVED ON UNIT 2000 YA ACEVES FROM ED HAD LIMITED REPORT AND RECEIVED LIMITED INFORMATION FROM [facility]. PT AAOX1, V/S B/P 101/56, P 86, T 96.4, 2 SAT 100%, PT PRESENTED COOPERATIVE IN GOWN, PT WAS PLACED ON BEDSIDE COMMODE AND CLEAR YELLOW URINE. PT WAS DRESSED IN YELLOW T-SHIRT AND BLUE PANTS AND YELLOW SOCKS. PT DENIES PAIN AND SI/HI. PT WAS PLACED IN RECLINER AND ATE 100% HS SNACK. PT REFUSED TO SIGN CONSENTS STATING "I NEVER SIGN ANYTHING UNTIL MY HEADLINER INSTALLER READS IT" [facility] CONTACTED AND REQUEST FOR DPOA PAPERWORK, PER SYDNIE PT IS DPOA. HCP Tereso FALCON CONTACTED AND ORDERS RECEIVED, HCP Sourav CISNEROS NP CONTACTED. LATER PT BECAME COMBATIVE AND WAS HITTING STAFF, HCP Tereso FALCON NP CONTACTED AND ORDERS RECEIVED FOR IM TORRIE SANTOS PER HCP ORDERS. LATER NOTED PT HAD WAS CALM AND INTERACTIVE WITH STAFF. PT WILL CONTINUE TO BE MONITOR PER [facility] PROTOCOL.
[2020-08-11 06:25] LABS: CHOLESTEROL 179 mg/dL (<200); HDL CHOLESTEROL 85 mg/dL (>40); LDL CHOLESTEROL 82 mg/dL (<100); TC:HDL 2.1 Ratio (Not establshd); TRIGLYCERIDE 62 mg/dL (<150); VLDL 12 mg/dL (<40)
[2020-08-11 06:38] LABS: SERUM ASSESSMENT Clear
--- NOTE | 2020-08-11 08:47 | NUR ---
Fabianayobany Vergara has a DPOA on record - it was in [employer] from her other admissions. This resume writer also printed it out and it is now in the chart. DPOA is shayla
[2020-08-11 09:25] VITALS: BP 94/52
--- NOTE | 2020-08-11 09:35 | NUR ---
PATIENT CARE ASSUMED AT 0700 - PATIENT WAS ASLEEP IN DINING LUDWIG WHEN ARRIVING ON UNIT. CALM - AWOKE FOR BREAKFAST. COMPLIANT WITH MEDICATIONS - ONE PILL AT A TIME. DEPAKOTE ADMINISTERED IN PUDDING. PATIENT ALERT TO SELF. COMPLETED 25 PERCENT OF HER BREAKFAST INDEPENDENTLY. SAT THROUGHT MORNING GROUP - OBSERVING BUT NO PARTICIPATION.
[2020-08-11 09:50] VITALS: BP 94/52
--- NOTE | 2020-08-11 10:39 | NUR ---
Pt new admit to [facility]. Admitted d/t increased aggression and behaviors at her facility. Was recently d/c from here end of June. Dx dementia, post polio. Noted with 9# gain since last admission in June. Pt with multiple meal refusals last admission; ate 50% of bkft this morning and 90% bkft yesterday. Low vit D labs last admission, may benefit form supplementation. Hx weight loss and poor intakes. Will start supplement daily as precaution. Low nutrition risk.
--- NOTE | 2020-08-11 10:45 | NUR ---
Low Vit D lab last admission, may benefit from supplementation.
--- NOTE | 2020-08-11 16:54 | NUR ---
JASEN and Dr. Yousif called Pt's DPOA, Chari. Dr. Yousif talked about medication changes for the PT . Dr. Yousif went over the Pt's current medications. Chari could not finish the call and asked to call back at a later time. JASEN will continue to follow.
[2020-08-11 19:13] VITALS: BP 100/72
[2020-08-12 00:06] LABS: GLYCOHEMOGLOBIN (HGB A1C) 5.3 % (4.8-5.6)
--- NOTE | 2020-08-12 06:18 | NUR ---
08-11-20 CARE TRANSFERRED 0 OBSERVED PT IN DAY ROOM IRRITABLE AT BODY CLEANER TAKING VS. LATER PT AAOX1, VSS, RR EVEN AND NONLABORED ON RA. PT DENIES SI/HI AND PAIN AND OBSERVED NO S/S OF PAIN OR NO SI/HI BEHAVIORS. DURING MEDICATION ADMIN PT HAD NO DIFFICULTIES, TAKING IN ICE CREAM. PT STANLEY PULSE TAKEN RADIAL 80. LATER PT YELLING "THIS IS MY HOUSE, GET THE FUCK OUT OF MY HOUSE" AND PT WAS SWATTING AT STAFF. TRIED TO REORINATED PT TO HOSPITAL, BUT CONTINUED INCREASED IN AGITATION, PRN ADMIN. LATER NOTED PT WAS CALM AND RELAXED IN RECLINER. PT WILL CONTINUE TO BE MONITOR PER [facility] PROTOCOL.
[2020-08-12 08:00] VITALS: BP 97/64
--- NOTE | 2020-08-12 13:07 | NUR ---
REFUSED AM MEDICATIONS ON INITIAL APPROACH THIS AM "I DON'T TAKE ANY MEDICINES THOSE ARE FOR MY "UNABLE TO BE COAXED INTO TAKIMG- ATTEMPTS TO REDIRECT-REORIENT UNSUCCESFUL.DID FALL ASLEEP BRIEFLY IN GERICHAIR AND WHEN AWAKE AT APPROX.1020 GIVEN MEDS CRUSHED IN ICE CREAM AND COMPLETED ENTIRE CARTON.ORIENTED TO NAME ONLY-RESISTIVE AND ARGUMENTATIVE WITH STAFF.STATES SHE BELIEVES SHE IS IN HER HOME AND ATTEMPTS TO ORDER STAFF AND OTHER PATIENTS TO LEAVE. HIGH FALLS ,RISK D/T IMPULSIVE BEHAVIOR,UNSTEADY GAIT.BP97/.64-DID EAT APPROX 75 PERCENT OF BREAKFAST.
[2020-08-12 19:31] VITALS: BP 143/116
[2020-08-12 21:00] VITALS: BP 143/116
--- NOTE | 2020-08-13 04:05 | NUR ---
PATIENT CARE WAS RESUMED AT 1900. SHE WAS IN THE DINING AREA. ALERT AND CONFUSSED. SHE CALIMED THAT THE DINIING AREA IS HER HOUSE AND SHE IS INCHARGE. SHE DENIES PAINS/SI/AVH/HI.SHE TOOK HER MEDS WHOLE AND BS ACTIVE X4 QUAD ABD IS SOFT FLAT AND NONE TENDER. SHE IS REFUSING TO BE CLEANED AT THIS TIME. NURSE CONTINUED TO ENCOURAGED WITH NO SUCCESS. SHE HAS A YELLOW TOP AND SOCK ON. ALARM ON HER CHAIR AND SHE IS IN Q12 MINUTES CHECK.
--- NOTE | 2020-08-13 06:19 | NUR ---
This nursing answered the call when pt's dtr called last night requesting to speak with pt. Nursing asked for unique code per units policy. Dtr did not have code. Grand dtr did not also have code. Grand dtr voiced she works at this hospital and that she is DPOA. Pt's is listed as dpoa on facesheet. House sup called to clarify that grand dtr was dpoa on admission documentation and have been in communication with care team and it was ok to have grand dtr talk to mom. Grand dtr did not return call. Will pass on to have unique code given to family.
[2020-08-13 08:40] VITALS: BP 107/56
[2020-08-13 09:40] VITALS: BP 107/56
--- NOTE | 2020-08-13 11:47 | NUR ---
1145 RESUMMED CARE FROM OVERNIGHT SHIFT THIS AM, PATIET SITTING IN DAY ROOM QUIET. PATIENT ATE BREAKFAST TOOK MEDICATION CRUSHED IN ICE CREAM. PATIENT DENIES SI/HI/AH/VH AT PRESENT. PATIENTS ABDOMEN SOFT BOWEL SOUNDS PRESENT PATIENTS LUNGS CLEAR. PATIENT HAS A HX OF POLIO AND ONE LEG IS SMALLER THEN THE OTHER. PATIENT IS A FALL RISK PATIENT PATIENT HAS NOT DISPLAYED ANY BEHAVIORS THIS SHIFT. WILL CONTINUE TO MONITOR PATIENT FOR SAFETY AND BEHAVIORS.
--- NOTE | 2020-08-13 16:15 | NUR ---
VIVIANE spoke with Chari, . VIVIANE provided and update on the Pt. Viviane provided Chari with the Pt's code. Chari requsted a copy of the healthcare DPOa be faxed to [facility]. Chari had no other question or concerns Updates including the DPOA paperwork were faxed to [facility]
[2020-08-13 19:15] VITALS: BP 124/103
[2020-08-13 21:33] VITALS: BP 124/103
--- NOTE | 2020-08-13 22:00 | NUR ---
Pt is alert to self, talks with herself, She is alert to person, affect is pleasant at times and then will turn to agitation or anxiety. She is suspicious occasionally with staff. Took her medications crushed with pudding. Lungs clear, HRR, abd soft nontender. Pt occasionally will become combative with cares. Denies SI/HI/AH/VH, will continue to monitor.
--- NOTE | 2020-08-14 04:36 | NUR ---
Pt was offered several time through out the night assistance with toileting. She did eventually allow the PCT's to check and change her. She has rested intermittently throughout this shift but frequently wakes up and talks amongst herself. She has been pleasantly confused, continues to curse occasionally but not at anyone in particular. will continue to monitor.
[2020-08-14 09:58] VITALS: BP 94/59
[2020-08-14 11:03] VITALS: BP 100/48
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
[2020-08-14 20:07] VITALS: BP 109/45
[2020-08-14 23:22] VITALS: BP 109/45
--- NOTE | 2020-08-14 23:45 | NUR ---
Pt is sitting in chair in day room, poor eye contact with nurse. Pt asked what she would like for a snack and given the option of ice cream, pudding or yogurt. Pt states "I would like ice cream" ice cream given with her medication. Pt is alert to self, affect is pleasant, talks amongst herself intermittently. currently seated at table.
[2020-08-15 08:57] VITALS: BP 106/58
[2020-08-15 09:34] VITALS: BP 106/58
--- NOTE | 2020-08-15 10:43 | NUR ---
1040 RESUMMED CARE FROM OVERNIGHT SHIFT THIS AM, PATIENT ALSEEP IN EBONY CHAIR. PATIENT WOKE UP ATE BREAKFAST TOOK MEDICATION WITHOUT INCIDENCE; PATIENT ALERT ORIENTED TO SELF AND PLACE. PATIENT DENIES SI/HI/AH/VH AT PRESENT PATIENTS ABDOMEN SOFT BOWELS SOUNDS PRESENT. PATIENTS LUNGS CLEAR PATIENT TALKS ABOUT HER PAST LIFE AND WANTS TO GO HOME. PATIENT THIS AM HAS NOT DISPLAYED ANY BEHAVIORS. WILL CONTINUE TO MONITOR PATIENT FOR SAFETY AND BEHAVIORS.
[2020-08-15 19:46] VITALS: BP 120/97
--- NOTE | 2020-08-15 21:44 | NUR ---
PATIENT CARE ASSUMED AT 1900. [facility]. NO S/S OF DISTRESS OR DISCOMFORT. TOOK MEDS CRUSHED IN ICE CREAM WITHOUT DIFFICULTY. DENIES PAIN, SI, HI. APPEARED TO BE HALLUCINATING AT ONE POINT THOUGH SHE WAS PICKING SOMETHING OUT OF THE AIR AND PUTTING IT IN HER MOUTH. NO NEGATIVE BEHAVIORS NOTED, WILL CONTINUE TO MONITOR.
[2020-08-16 08:55] VITALS: BP 101/58
[2020-08-16 11:32] VITALS: BP 101/58
--- NOTE | 2020-08-16 12:51 | NUR ---
1250 RESUMMED CARE FROM OVERNIGHT SHIFT THIS AM, PATIENT ASLEEP IN EBONY CHAIR IN DAY ROOM. PATIENT ALERT ORIENTED TO SELF ONLY PATIENT HAD A VISIT FROM DAUGHTER LAST NIGHT. PATIENT WOULD WAKE UP FOR THE VISIT PATIENT UNABLE TO TELLME ABOUT SI/HI/AH/VH AT PRESENT. PATIENTS ABDOMEN SOFT BOWEL SOUNDS PRESENT PATIENTS LUNGS CLEAR. PATIENT HAS NOT BEEN INTERACTING WITH STAFF AND PATIENTS. PATIENT HAS BEEN SLEEPING ON AND OFF IN DAY ROOM WILL CONTINUE TO MONITOR PATIENT FOR SAFETY AND BEHAVIORS.
[2020-08-16 19:48] VITALS: BP 110/54
--- NOTE | 2020-08-17 00:50 | NUR ---
PATIENT PLACED IN BED AROUND 1929. SHE HAS BEEN CALM FOR THE MOST PART BUT DOES BECOME DEFENSIVE AND AGITATED AND REFUSES CARES BUT CAN BE REDIRECTED AND WARMS TO DIRECTIONS WHEN SPOKEN TO CALMLY AND SLOWLY. PATIENT'S MEDS WERE CRUSHED AND PLACED IN PUDDING. THE PUDDING THEN HANDED TO PATIENT THAT WOULD ACCEPT IT IF SHE COULD FEED HERSELF AT HER PACE. SHE REFUSED THE PUDDING WITH MEDS IF THIS NURSE TRIED TO FEED IT TO HER. PT DID EAT THE PUDDING WITH MEDS WITHIN A HALF AN HOUR TIME AT HER OWN PACE. SHE IS VERY SUSPICIOUS OF ANYTHING THAT MAY HAVE MEDS IN IT. PATIENT IS A FALL RISK. SHE IS RESTING IN BED WITH 3 SIDE RAILS UP FOR SAFETY. SHE IS ABLE TO MANEUVER HER POSITIONS IN BED. BED IN LOW POSITION AND BED ALARM IS ON. PATIENT DENIES PAIN. NO SI/HI NOTED. PT IS DELUSIONAL AT TIMES. SHE THINKS PEOPLE ARE OUT TO GET HER. ROUTINE ROUNDS TO ASSESS SAFETY AND STATUS OF PATIENT. PATIENT APPEARS TO BE SLEEPING AT THIS TIME. CONTINUING TO MONITOR.
[2020-08-17 05:47] LABS: CALCIUM 8.8 mg/dL (8.5-10.1); CREATININE 0.6 mg/dL (0.6-1.0); POTASSIUM 4.4 mmol/L (3.5-5.1)
--- NOTE | 2020-08-17 08:11 | NUR ---
RT Progress Note- Fabiana is making progress towards recreation therapy goal of decreased agitation and restlessness. When alert, Fabiana is able to be present in groups though she is more of a passive participant, observing rather than actively engaging. She has not required redirection for agitation or similar behaviors during group times. RT staff will continue to encourage further progress.
[2020-08-17 09:15] VITALS: BP 115/52
--- NOTE | 2020-08-17 10:10 | NUR ---
1010 RESUMMED CARE FROM OVERNIGHT SHIFT THIS AM, PATIENT IN ROOM ASLEEP. WE GOT PATIENT UP TO EAT BREAKFAST AND TO TAKE HER MEDICATION. PATIENT DID NOT EAT ANY OF HER BREAKFAST AND DID NOT TAKE HER MEDICATION. PATIENT HELD TEETH TOGETHER AND NOTHING WAS ABLE TO COME OUT OR GO IN HER MOUTH. PATIENT VERY LETHAGIC NOT OPENING HER EYES AND NOT RESPONDING TO COMMANDS. PATIENT UNABLE TO TELL ME ABOUT SI/HI/AH/VH AT PRESENT. PATIENTS ABDOMEN SOFT BOWEL SOUNDS PRESENT. PATIENTS LUNGS CLEAR PATIENT TALKS TO SELF AT TIMES AND HAS CONFUSION. WILL CONTINUE TO MONITOR PATIENT FOR SAFETY AND BEHAVIORS.
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
[2020-08-17 19:15] VITALS: BP 145/92
[2020-08-17 20:15] VITALS: BP 145/92
--- NOTE | 2020-08-18 00:07 | NUR ---
PATIENT SAT IN DINING ROOM AT A TABLE IN [facility] ALL EVENING. SHE WAS CALM AND COOPERATIVE. HER MEDS WERE CRUSHED AND PLACED IN PUDDING. PATIENT ATE IT AT HER OWN PACE AND FINISHED IT. PATIENT LIKES TO KEEP HER HANDS BUSY AND FIDGETS WITH OBJECTS OR BLANKETS. SHE WAS USING A KLEENEX TO WIPE THE TABLE OFF. PATIENT FELL ASLEEP IN THE CHAIR AND WAS TAKEN TO BED AROUND 2230. INCONTINENCE CARE DONE AND PATIENT WIPED DOWN AND NEW YELLOW SHIRT PLACED ON HER. PATIENT STILL SWINGS AT STAFF WHEN CARES BEING DONE BUT CALMS QUICKLY. SHE IS NOT VOCAL TONIGHT. SHE DOES HAVE DELUSIONS AND OCCASIONALLY THINKS SHE SEE'S MUMTAZ AND SUMMER. PATIENT RESTING IN BED WITH EYES CLOSED. PT IN COMFORTABLE POSITION. BED IN LOW POSITION AND BED ALARM IS ON. NO SIGNS OF SI/HI NOTED. DENIES PAIN. CONTINUING TO MONITOR.
--- NOTE | 2020-08-18 05:10 | NUR ---
PATIENT AWOKE AT 0430 AND BROUGHT OUT TO DINING ROOM SHE COULDN'T SLEEP. PATIENT HAD INCONTINENCE CARE DONE BEFORE THIS. SHE WAS VERY VERBAL AND HITTING AND SCRATCHING STAFF. SHE REFERRED TO ONE STAFF TERRITORY DEVELOPMENT MANAGER KAELYN AND THE OTHER ONE SUMMER. SHE IS SITTING IN RECLINER CHAIR AT A TABLE WITH FEET UP. PATIENT REFUSES TO HAVE PILLOW PLACED DOWN BY LEGS AND LEGS CAN BE EASILY BRUISED IF CAUGHT BETWEEN CHAIR AND RECLINER BARS. SHE KEPT REMOVING PILLOW AND FOUGHT AND REPOSITIONED HERSELF IN SAME POSITION WHEN TRYING TO KEEP PATIENT'S LEGS FROM FALLING BETWEEN GAP INCHAIR AT RECLINER. PATIENT CALMED AND IS RESTING. STAFF MONITORING LEG POSITIONING TO HELP PREVENT INJURY. CHAIR IS LOCKED. CONTINUING TO MONITOR.
[2020-08-18 10:51] VITALS: BP 120/90
[2020-08-18] MEDS ORDERED: CHLORPROMAZINE25 M3 PO (12:39)
--- NOTE | 2020-08-18 13:24 | NUR ---
PATIENT WAS UP, AND OUT ON THE UNIT SLEEPING IN GERICHAIR WHEN CARE ASSUMED. PATIENT WAS VERY DIFFICULT TO ARAOUSE FOR MORNING MEDICATION, AND BREAKFAST. WHEN AWAKEN, MORNING MEDICATION GIVEN CRUSHED IN PUDDING, WELL TOELRATED. PATIENT IS ALERT, FORGETFUL, PLEASANTLY CONFUSED, REQUIRES ASSIST OF STAFF TO COMPLETE ADL. PATIENT HAS BEEN CALM, COOPERATIVE WITH CARE. NO AGGRESSION OR AGITATION NOTED AT THIS TIME. AFFECT IS FLAT/BLUNTED, MOOD IS EUTHYMIC. PATIENT IS DISCHARGED BACK TO [facility] TODAY, REPORT CALLED TO NURSE (ANDRE), AWAITING PICK-UP, BY TRANSPORTATION VAN.
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
--- NOTE | 2020-08-18 15:35 | NUR ---
Discharge paperwork was faxed to Batsheva Gallagher, . Copy of the fax confirmation was placed in the chart.
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
== END 2020-08-18 15:00 | DRG 884 ==
LOC: SBH
PROVIDERS: ADMIT Psychiatry & Neurology Psychiatry; ATTEND Psychiatry & Neurology Psychiatry
DX: F03.91 Unspecified dementia, unspecified severity, with behavioral disturbance (principal); F01.51 Vascular dementia, unspecified severity, with behavioral disturbance; G93.41 Metabolic encephalopathy; Z66 Do not resuscitate; E53.8 Deficiency of other specified B group vitamins; R29.2 Abnormal reflex; Z88.1 Allergy status to other antibiotic agents; Z88.5 Allergy status to narcotic agent; Z88.0 Allergy status to penicillin; Z88.6 Allergy status to analgesic agent; Z90.710 Acquired absence of both cervix and uterus
CPT/HCPCS: 10880

== ENCOUNTER 2020-09-13 17:27 | Emergency (ER) | payer OTHER ==
[~2020-09-13] VITALS: Ht 157.5 cm; Wt 59.0 kg
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
[~2020-09-13 17:27] MED LIST changes: +CHLORPROMAZINE25 M3 PO
[2020-09-13 17:58] LABS: URINE BILIRUBIN NEGATIVE (Negative); URINE BLOOD NEGATIVE (Negative); URINE CLARITY CLEAR; URINE COLOR YELLOW; URINE GLUCOSE-RANDOM* NEGATIVE (Negative); URINE KETONES TRACE (Negative); URINE LEUKOCYTES-REFLEX NEGATIVE (Negative); URINE NITRITE-REFLEX NEGATIVE (Negative); URINE PROTEIN (DIPSTICK) NEGATIVE (Negative); URINE SPECIFIC GRAVITY 1.025 (1.005-1.035); URINE UROBILINOGEN 0.2 E.U./dl (0.2-1.0)
[2020-09-13 18:14] LABS: ABSOLUTE NEUTROPHILS 3.9 thou/uL (1.4-8.2); BASOPHILS 1.2 % (0.0-2.0); EOSINOPHILS 2.5 % (0.0-3.0); HEMATOCRIT 34.7 % (37.0-47.0); HEMOGLOBIN 11.5 gm/dL (12.0-15.0); LYMPHOCYTES 29.7 % (24.0-44.0); MCH 31.5 pg (26.0-34.0); MCHC 33.2 g/dL (28.0-37.0); MCV 94.9 fL (80.0-100.0); MONOCYTES 7.5 % (1.0-8.0); PLATELET COUNT 257 thou/uL (150-400); POLYS 59.1 % (36.0-66.0); RBC 3.65 mil/uL (4.20-5.00); RDW 14.7 % (10.5-14.5); WBC 6.6 thou/uL (4.0-11.0)
[2020-09-13 18:24] LABS: CALCIUM 8.8 mg/dL (8.5-10.1); CREATININE 0.5 mg/dL (0.6-1.0); POTASSIUM 3.8 mmol/L (3.5-5.1)
[2020-09-13 18:29] LABS: TOTAL BILIRUBIN 0.4 mg/dL (0.2-1.0); TOTAL PROTEIN 6.4 g/dL (6.4-8.2)
[2020-09-13 19:42] VITALS: BP 100/53
== END 2020-09-13 20:12 ==
LOC: ER 17:27
PROVIDERS: Emergency Medicine
DX: M24.551 Contracture, right hip (principal); Z20.822 Contact with and (suspected) exposure to COVID-19; M24.552 Contracture, left hip; W05.0XXA Fall from non-moving wheelchair, initial encounter; Y93.89 Activity, other specified; Y92.89 Other specified places as the place of occurrence of the external cause; Y99.8 Other external cause status; F03.90 Unspecified dementia, unspecified severity, without behavioral disturbance, psychotic disturbance, mood disturbance, and anxiety; F17.210 Nicotine dependence, cigarettes, uncomplicated; Z88.6 Allergy status to analgesic agent; Z88.1 Allergy status to other antibiotic agents; Z88.0 Allergy status to penicillin

== ENCOUNTER 2021-02-11 15:03 | Emergency (ER) | payer OTHER ==
[~2021-02-11] VITALS: Ht 149.9 cm; Wt 63.5 kg
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
[2021-02-11 17:15] LABS: URINE BILIRUBIN NEGATIVE (Negative); URINE BLOOD NEGATIVE (Negative); URINE CLARITY SL CLOUDY; URINE COLOR YELLOW; URINE GLUCOSE-RANDOM* NEGATIVE (Negative); URINE KETONES NEGATIVE (Negative); URINE LEUKOCYTES-REFLEX TRACE (Negative); URINE NITRITE-REFLEX NEGATIVE (Negative); URINE PROTEIN (DIPSTICK) NEGATIVE (Negative); URINE UROBILINOGEN 0.2 E.U./dl (0.2-1.0)
[2021-02-11 19:36] VITALS: BP 132/71
--- NOTE | 2021-02-12 10:53 | EKG ---
[place] [address] [place] [address] ELECTROCARDIOGRAM REPORT Name: ALEX MARAVILLA Room #: THOMAS Read#: [id number] Admission: 02/11/21 Attend Phys: Discharge: 02/11/21 Date of : 42 Report #: [id number] 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
== END 2021-02-11 19:37 | disposition home or self-care (01) ==
LOC: ER 15:03
PROVIDERS: Nurse Practitioner Family
DX: S00.83XA Contusion of other part of head, initial encounter (principal); F02.80 Dementia in other diseases classified elsewhere, unspecified severity, without behavioral disturbance, psychotic disturbance, mood disturbance, and anxiety; F17.210 Nicotine dependence, cigarettes, uncomplicated; Z79.899 Other long term (current) drug therapy; Z88.5 Allergy status to narcotic agent; Z88.6 Allergy status to analgesic agent; Z88.0 Allergy status to penicillin; Z88.1 Allergy status to other antibiotic agents; W06.XXXA Fall from bed, initial encounter; Y93.89 Activity, other specified; Y92.89 Other specified places as the place of occurrence of the external cause; Y99.8 Other external cause status

== ENCOUNTER 2021-02-28 11:28 | Emergency (ER) | payer OTHER ==
[~2021-02-28] VITALS: Ht 149.9 cm; Wt 63.5 kg
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
[2021-02-28 12:51] VITALS: BP 147/74
== END 2021-02-28 12:52 | disposition home or self-care (01) ==
LOC: ER 11:28
DX: S01.111A Laceration without foreign body of right eyelid and periocular area, initial encounter (principal); F17.210 Nicotine dependence, cigarettes, uncomplicated; Z88.5 Allergy status to narcotic agent; Z88.6 Allergy status to analgesic agent; Z88.0 Allergy status to penicillin; Y08.89XA Assault by other specified means, initial encounter; Y93.89 Activity, other specified; Y92.89 Other specified places as the place of occurrence of the external cause; Y99.8 Other external cause status

== ENCOUNTER 2021-04-01 20:23 | Inpatient (IN) | payer OTHER ==
[~2021-04-01] VITALS: Ht 157.5 cm; Wt 50.1 kg
[~2021-04-01 20:23] MED LIST changes: +LORAZEPAM0.5 MG/1 M IM; +MACROBID 100 M100 M2 PO; +SERTRALINE HCL25 M1 PO; +TYLENOL325 M1 PO
[2021-04-02 01:00] VITALS: BP 142/119
[2021-04-02 08:22] LABS: CHOLESTEROL 202 mg/dL (<200); HDL CHOLESTEROL 79 mg/dL (>40); LDL CHOLESTEROL 106 mg/dL (<100); TC:HDL 2.6 Ratio (Not establshd); TRIGLYCERIDE 88 mg/dL (<150); VLDL 18 mg/dL (<40)
[2021-04-02 10:51] LABS: URINE BLOOD NEGATIVE (Negative); URINE CLARITY CLEAR; URINE COLOR YELLOW; URINE GLUCOSE-RANDOM* NEGATIVE (Negative); URINE KETONES 1+ (Negative); URINE LEUKOCYTES-REFLEX NEGATIVE (Negative); URINE NITRITE-REFLEX NEGATIVE (Negative); URINE PROTEIN (DIPSTICK) NEGATIVE (Negative); URINE SPECIFIC GRAVITY >= 1.030 (1.005-1.035); URINE UROBILINOGEN 0.2 E.U./dl (0.2-1.0)
[2021-04-02 10:53] LABS: ICTOTEST (BILI CONFIRMATORY) Negative (Negative); URINE BILIRUBIN NEGATIVE (Negative)
[2021-04-02 11:23] VITALS: BP 107/66
[2021-04-02 11:32] LABS: BASOPHILS 0.4 % (0.0-2.0); EOSINOPHILS 1.4 % (0.0-3.0); HEMATOCRIT 43.8 % (37.0-47.0); HEMOGLOBIN 13.6 gm/dL (12.0-15.0); LYMPHOCYTES 9.3 % (24.0-44.0); MCH 30.2 pg (26.0-34.0); MCHC 31.1 g/dL (28.0-37.0); MONOCYTES 7.4 % (1.0-8.0); PLATELET COUNT 297 thou/uL (150-400); POLYS 81.5 % (36.0-66.0); RBC 4.52 mil/uL (4.20-5.00); RDW 17.1 % (10.5-14.5); WBC 11.1 thou/uL (4.0-11.0)
[2021-04-02 12:08] LABS: ALBUMIN 3.1 g/dL (3.4-5.0); CALCIUM 9.1 mg/dL (8.5-10.1); CREATININE 0.7 mg/dL (0.6-1.0); POTASSIUM 4.4 mmol/L (3.5-5.1); TOTAL BILIRUBIN 0.7 mg/dL (0.2-1.0); TOTAL PROTEIN 7.3 g/dL (6.4-8.2)
[2021-04-03 05:36] LABS: GLYCOHEMOGLOBIN (HGB A1C) 5.5 % (4.8-5.6)
[2021-04-03 19:40] VITALS: BP 121/78
[2021-04-04 20:00] VITALS: BP 121/78
[2021-04-05 07:20] VITALS: BP 122/71
[2021-04-05 10:06] VITALS: BP 122/71
[2021-04-05 19:24] VITALS: BP 119/62
[2021-04-06 09:55] VITALS: BP 121/68
[2021-04-07 15:01] VITALS: BP 115/64
[2021-04-07 19:50] VITALS: BP 105/65
[2021-04-08 09:48] VITALS: BP 100/65
[2021-04-08 19:51] VITALS: BP 128/108
[2021-04-09 10:46] VITALS: BP 105/67
[2021-04-09 13:45] VITALS: BP 102/51
[2021-04-09 20:09] VITALS: BP 95/54
[2021-04-10 09:45] VITALS: BP 108/88
[2021-04-10 19:30] VITALS: BP 108/88
[2021-04-11 05:13] LABS: ALBUMIN 2.9 g/dL (3.4-5.0); CREATININE 0.7 mg/dL (0.6-1.0); POTASSIUM 3.4 mmol/L (3.5-5.1); TOTAL BILIRUBIN 0.4 mg/dL (0.2-1.0)
[2021-04-11 08:00] VITALS: BP 118/69
[2021-04-11 08:15] VITALS: BP 118/69
[2021-04-11 19:55] VITALS: BP 117/76
[2021-04-11 20:25] VITALS: BP 117/76
== END 2021-04-12 | disposition hospice, inpatient (51) | DRG 884 ==
LOC: SBH
PROVIDERS: Hospitalist; Internal Medicine; Nurse Practitioner; Nurse Practitioner Psychiatric/Mental Health; ADMIT Psychiatry & Neurology Psychiatry; ATTEND Psychiatry & Neurology Psychiatry
DX: F03.91 Unspecified dementia, unspecified severity, with behavioral disturbance (principal); E46 Unspecified protein-calorie malnutrition; E87.0 Hyperosmolality and hypernatremia; R41.0 Disorientation, unspecified; E78.5 Hyperlipidemia, unspecified; E53.8 Deficiency of other specified B group vitamins; R62.7 Adult failure to thrive; Z20.822 Contact with and (suspected) exposure to COVID-19; Z68.20 Body mass index [BMI] 20.0-20.9, adult; Z88.6 Allergy status to analgesic agent; Z88.1 Allergy status to other antibiotic agents; Z88.5 Allergy status to narcotic agent; Z88.0 Allergy status to penicillin; Z79.899 Other long term (current) drug therapy; Z86.718 Personal history of other venous thrombosis and embolism; Z86.12 Personal history of poliomyelitis
CPT/HCPCS: 10880